=== PATIENT | female | born 1995 | race Caucasian/White ===

== ENCOUNTER 2016-05-03 02:46 | Inpatient (IN) | payer MEDICAID ==
[2016-05-03 03:22] LABS: APPEARANCE,URINE CLOUDY; BILIRUBIN,URINE NEGATIVE (NEGATIVE); GLUCOSE, URINE NEGATIVE (NEGATIVE); KETONES,URINE NEGATIVE (NEGATIVE); LEUKOCYTE ESTERASE,URINE LARGE (NEGATIVE); NITRITE,URINE NEGATIVE (NEGATIVE); PROTEIN,URINE 100 mg/dL (NEGATIVE); URINE SPECIFIC GRAVITY 1.021; UROBILINOGEN,URINE NEGATIVE mg/dL (<2.0)
[2016-05-03 03:36] LABS: URINE BARBITURATES SCREEN NEGATIVE; URINE METHADONE SCREEN NEGATIVE; URINE OPIATES LOW NEGATIVE; URINE PHENCYCLIDINE SCREEN NEGATIVE
[2016-05-03 03:37] LABS: ABSOLUTE BASOPHILS # (AUTO) 0.1 10^3/uL (0.0-0.2); ABSOLUTE EOSINOPHILS # (AUTO) 0.2 10^3/uL (0.0-0.6); ABSOLUTE LYMPHOCYTES (AUTO) 1.4 10^3/uL (0.5-4.7); ABSOLUTE MONOCYTES (AUTO) 0.9 10^3/uL (0.1-1.4); ABSOLUTE NEUT (AUTO) 7.8 10^3/uL (1.7-8.2); BASOPHILS % (AUTO) 0.7 % (0-2); EOSINOPHILS % (AUTO) 2.3 % (0-6); HEMATOCRIT 27.2 % (36.0-47.0); HEMOGLOBIN 9.1 g/dL (12.0-15.5); HGB HCT DIFFERENCE 0.1; LYMPHOCYTES % (AUTO) 13.4 % (13-45); MEAN CORPUSCULAR HEMOGLOBIN 25.1 pg (27.0-33.4); MEAN CORPUSCULAR HGB CONC 33.3 g/dL (32.0-36.0); MEAN CORPUSCULAR VOLUME 75 fl (80-97); RED BLOOD COUNT 3.62 10^6/uL (3.72-5.28); RED CELL DISTRIBUTION WIDTH 16.8 % (11.5-14.0); SEGMENTED NEUTROPHILS % (AUTO) 74.6 % (42-78); WHITE BLOOD COUNT 10.5 10^3/uL (4.0-10.5)
[2016-05-03] MEDS ORDERED: MISOPROSTOL 0.1 MG TABLET ONE ×2 (04:45→04:47)
[2016-05-03] MEDS: RINGERS SOLUTION,LACTATED 1,000 ML IV PRN ×2 (05:03→10:13)
--- NOTE | 2016-05-03 08:00 | L&D Flow Sheet ---
LD Flowsheet Datetime Report Generated by CPN: 05/03/2016 08:00 Datetime: 05/03/2016 07:30 NBP Sys/Zohra/Mean (mmHg): 133 (Norma Norman RN) : 62 (Norma Norman RN) : 89 (Norma Norman RN) Pulse: 90 (Norma Norman RN) Respirations: 16 (Norma Norman RN) Temperature (F): 98.3 (Norma Norman RN) Temperature (C): 36.8 (QS system process) Temperature Route: Oral (Norma Norman, KATELYN) Uterine Activity Monitor Mode: External (Norma Marhefka, RN) Frequency (min): UTD pt OOB to bathroom (Norma Marhefka, RN) Quality: Mild (Nroma Marhefka, RN) Duration (sec): 80 (Norma Marhefka, RN) Resting Tone (Palpate): Relaxed (Norma Marhefka, RN) Assessment A Monitor Mode: External US (Norma Marhefka, RN) FHR Baseline Rate : 140 (Norma Marhefka, RN) FHR Baseline Changes: No Baseline Change (Norma Marhefka, RN) Variability: Moderate 6-25 bpm (Norma Marhefka, RN) Accelerations: None (Norma Marhefka, RN) Decelerations: None (Norma Marhefka, RN) Pain Pain Scale: 3 (Norma Marhefka, RN) Pain Presence: Intermittent (Norma Marhefka, RN) Pain Type: Pressure (Norma Marhefka, RN) Pain Location: Other (Annotations: Pelvic ) (Norma Marhefka, RN) Pain Goal: 0 (Norma Marhefka, RN) Pain Relief Measures: Comfort Measures (Norma Marhefka, RN) Pain Coping: Talking Through Contractions (Norma Marhefka, RN) Maternal Assessment Level of Consciousness: Fully Conscious (Norma Marhefka, RN) DTR's/Clonus: DTRs 2+; No Clonus (Norma Marhefka, RN) Headache: Denies (Norma Marhefka, RN) Breath Sounds, Left: Clear and Equal (Norma Marhefka, RN) Breath Sounds, Right: Clear and Equal (Norma Marhefka, RN) Nausea/Vomiting: Denies (Norma Marhefka, RN) RUQ Epigastric Pain: Denies (Norma Marhefka, RN) LaborFlag: Antepartum (QS system process) Datetime: 05/03/2016 07:27 Comfort Measures: Rocking Chair (Norma Marhefka, RN) Datetime: 05/03/2016 07:24 Communication Communication: Report Given to @ R Marhfeka (Dalila Hawk, RN) Communication Comments: Bedside report to oncoming RN, care relinquished (Dalila Hawk, RN) Datetime: 05/03/2016 07:02 I/O Interventions: Up to BR (Dalila Hawk, RN) Datetime: 05/03/2016 07:00 Uterine Activity Monitor Mode: External (Dalila Hawk, RN) Frequency (min): 3-5 (Dalila Hawk, RN) Quality: Mild/Moderate (Dalila Hawk, RN) Duration (sec): 70-100 (Dalila Hawk, RN) Resting Tone (Palpate): Relaxed (Dalila Hawk, RN) Assessment A Monitor Mode: External US (Dalila Hawk, RN) FHR Baseline Rate : 145 (Dalila Hawk, RN) Variability: Moderate 6-25 bpm (Dalila Hawk, RN) Accelerations: 15X15 (Dalila Hawk, RN) Decelerations: None (Dalila Hawk, RN) Datetime: 05/03/2016 06:30 Uterine Activity Monitor Mode: External (Dalila Hawk, RN) Frequency (min): 3-5 (Dalila Hawk, RN) Quality: Moderate (Dalila Hawk, RN) Duration (sec): 50-100 (Dalila Hawk, RN) Resting Tone (Palpate): Relaxed (Dalila Hawk, RN) Assessment A Monitor Mode: External US (Dalila Hawk, RN) FHR Baseline Rate : 135 (Dalila Hawk, RN) Variability: Moderate 6-25 bpm (Dalila Hawk, RN) Accelerations: 15X15 (Dalila Hawk, RN) Decelerations: None (Dalila Hawk, RN) Datetime: 05/03/2016 06:00 Uterine Activity Monitor Mode: External (Dalila Hawk, RN) Frequency (min): 7-8 (Dalila Hawk, RN) Quality: Moderate (Dalila Hawk, RN) Duration (sec): 50-120 (Dalila Hawk, RN) Resting Tone (Palpate): Relaxed (Dalila Hawk, RN) Assessment A Monitor Mode: External US (Dalila Hawk, RN) FHR Baseline Rate : 135 (Dalila Hawk, RN) Variability: Moderate 6-25 bpm (Dalila Hawk, RN) Accelerations: 15X15 (Dalila Hawk, RN) Decelerations: None (Dalila Hawk, RN) Datetime: 05/03/2016 05:47 I/O Interventions: Up to BR (Dalila Hakw, RN) Datetime: 05/03/2016 05:30 Uterine Activity Monitor Mode: External (Dalila Hawk, RN) Frequency (min): 7-8 (Dalila Hawk, RN) Quality: Moderate (Dalila Hawk, RN) Duration (sec): 100-120 (Dalila Hawk, RN) Resting Tone (Palpate): Relaxed (Dalila Hawk, RN) Assessment A Monitor Mode: External US (Dalila Hawk, RN) FHR Baseline Rate : 135 (Dalila Hawk, RN) Variability: Moderate 6-25 bpm (Dalila Hawk, RN) Accelerations: 15X15 (Dalila Hawk, RN) Decelerations: None (Dalila Hawk, RN) Datetime: 05/03/2016 05:06 I/O Interventions: Up to BR (Dalila Hawk, RN) Datetime: 05/03/2016 05:03 Medications Medication Comments: cytotec 25 mcg PO (Dalila Hawk, RN) Datetime: 05/03/2016 05:02 NBP Sys/Zohra/Mean (mmHg): 127 (QS system process) : 71 (QS system process) : 91 (QS system process) Pulse: 89 (QS system process) LaborFlag: Antepartum (QS system process) Datetime: 05/03/2016 05:00 Uterine Activity Monitor Mode: External (Dalila Hawk, RN) Frequency (min): 6-8 (Dalila Hawk, RN) Quality: Mild/Moderate (Dalila Hawk, RN) Duration (sec): 100 (Dalila Hawk, RN) Resting Tone (Palpate): Relaxed (Dalila Hawk, RN) Assessment A Monitor Mode: External US (Dalila Hawk, RN) FHR Baseline Rate : 135 (Dalila Hawk, RN) Variability: Moderate 6-25 bpm (Dalila Hawk, RN) Accelerations: 15X15 (Dalila Hawk, RN) Decelerations: None (Dalila Hawk, RN) Datetime: 05/03/2016 04:32 NBP Sys/Zohra/Mean (mmHg): 130 (QS system process) : 63 (QS system process) : 90 (QS system process) Pulse: 92 (QS system process) LaborFlag: Antepartum (QS system process) Datetime: 05/03/2016 04:30 Uterine Activity Monitor Mode: External (Dalila Hawk, RN) Frequency (min): 10 (Dalila Hawk, RN) Quality: Mild/Moderate (Dalila Hawk, RN) Duration (sec): 80-180 (Dalila Hawk, RN) Resting Tone (Palpate): Relaxed (Dalila Hawk, RN) Contraction Comments: Unable to accurately assess ctx pattern d/t pt up to BR (Dalila Hawk, RN) Assessment A Monitor Mode: External US (Dalila Hwak, RN) FHR Baseline Rate : 135 (Dalila Hawk, RN) FHR Baseline Rate : 140 (Dalila Hawk, RN) Variability: Moderate 6-25 bpm (Dalila Hawk, RN) Accelerations: 15X15 (Dalila Hawk, RN) Decelerations: None (Dalila Hawk, RN) Datetime: 05/03/2016 04:15 Communication Communication: Provider Orders Received; Report Given to @ Dr Hilton (Dalila Hawk, RN) Communication Comments: Report to Dr Hilton, orders for cytotec 25 mcg PO Q4 (Dalila Hawk, RN) Datetime: 05/03/2016 04:14 Hygiene: Underpad Changed; Gown Changed (Tiana Morris, RN) Patient Care Comments: clean linens provided (Tiana Morris, RN) Datetime: 05/03/2016 04:10 I/O Interventions: Up to BR (Tiana Morris, RN) Datetime: 05/03/2016 04:01 NBP Sys/Zohra/Mean (mmHg): 128 (QS system process) : 69 (QS system process) : 92 (QS system process) Pulse: 82 (QS system process) LaborFlag: Antepartum (QS system process) Datetime: 05/03/2016 04:00 Uterine Activity Monitor Mode: External (Dalila Hawk, RN) Frequency (min): 6-12 (Dalila Hawk, RN) Quality: Mild/Moderate (Dalila Hawk, RN) Duration (sec): 50-220 (Dalila Hawk, RN) Resting Tone (Palpate): Relaxed (Dalila Hawk, RN) Assessment A Monitor Mode: External US (Dalila Hawk, RN) FHR Baseline Rate : 145 (Dalila Hawk, RN) Variability: Moderate 6-25 bpm (Dalila Hawk, RN) Accelerations: 15X15 (Dalila Hawk, RN) Decelerations: None (Dalila Hawk, RN) Datetime: 05/03/2016 03:57 Vaginal Exam Dilatation (cm): 1.0 (Dalila Hawk, RN) Effacement (%): 70 (Dalila Hawk, RN) Station: -3 (Dalila Hawk, RN) Exam by: Jan Arechiga RN (Dalila Hawk, RN) Vaginal Bleeding: None (Dalila Hawk, RN) Cervix, Consistency: Moderate (Dalila Hawk, RN) Cervix, Position: Posterior (Dalila Hawk, RN) Perez's Score Dilatation (cm): 1-2 cm (Dalila Hawk, RN) Effacement: 60-70_ effaced (Dalila Hawk, RN) Station: minus 3 (Dalila Hawk, RN) Consistency: Medium (Dalila Hawk, RN) Position: Posterior (Dalila Hawk, RN) Total Perez's Score: 4 (QS system process) : 0-4 = Unfavorable cervix (QS system process) Datetime: 05/03/2016 03:50 Procedures: Consents Signed (Dalila Hawk, RN) Datetime: 05/03/2016 03:30 NBP Sys/Zohra/Mean (mmHg): 132 (QS system process) : 72 (QS system process) : 97 (QS system process) Pulse: 88 (QS system process) Uterine Activity Monitor Mode: External (Dalila Hawk, RN) Frequency (min): x1 (Dalila Hawk, RN) Quality: Mild/Moderate (Dalila Hawk, RN) Duration (sec): 100 (Dalila Hawk, RN) Resting Tone (Palpate): Relaxed (Dalila Hawk, RN) Assessment A Monitor Mode: External US (Dalila Hawk, RN) FHR Baseline Rate : 145 (Dalila Hawk, RN) Variability: Moderate 6-25 bpm (Dalila Hawk, RN) Accelerations: None (Dalila Hawk, RN) Decelerations: None (Dalila Hawk, RN) Patient Care IV/Blood Work: IV Started; IV Bolus Started; IV Bolus Given ml @ 300 (Dalila Hawk, RN) LaborFlag: Antepartum (QS system process) Datetime: 05/03/2016 03:23 Patient Care IV/Blood Work: Labs Drawn (Dalila Arechiga, KATELYN) Datetime: 05/03/2016 03:15 Quality: Mild/Moderate (Dalila Arechiga RN) Membrane Status: Ruptured (Dalila Arechiga RN) Membranes Ruptured Date/Time: 05/03/2016 02:00 (Dalila Arechiga RN) Membranes Rupture Method: Spontaneous (Dalila Arechiga RN) Amniotic Fluid Color: Clear (Dalila Arechiga RN) Amniotic Fluid Amount: Small (Dalila Arechiga RN) Amniotic Fluid Odor: Normal (Dalila Arechiga RN) Vaginal Bleeding: None (Dalila Arechiga RN) Maternal Assessment Level of Consciousness: Fully Conscious (Dalila Arechiga, RN) DTR's/Clonus: DTRs 2+; No Clonus (Dalila Hawk, RN) Headache: Denies (Dalila Coxl, RN) Breath Sounds, Left: Clear and Equal (Dalila Hawk, RN) Breath Sounds, Right: Clear and Equal (Dalila Hawk, RN) Nausea/Vomiting: Denies (Dalila Hawk, RN) RUQ Epigastric Pain: Denies (Dalilastewart Coxl, RN) Patient Position/Activity: Right Tilt (Dalila Arechiga, RN) Comfort Measures: Family Support (Dalila Arechiga, KATELYN) Teaching Instructional Method: Verbal; Patient Instructed; Family/Support Person Instructed; Verbalized Understanding (Dalila Arechiga RN) Plan of Care: Plan of Care Discussed; Vaginal Delivery; C/S Delivery; Labor; Induction (Dalila Arechiga RN) Unit Routine: [place] to Room; Call [place]; Bed; Photography; Unit Personnel; Monitoring; Bathroom Privileges (Dalila Arechiga RN) Labor/Induction: Labor Stages; Cervical Ripening; Induction (Dalila Arechiga RN) Pain Management: Epidural (Dalila Arechiga RN) Datetime: 05/03/2016 03:14 NBP Sys/Zohra/Mean (mmHg): 141 (QS system process) : 89 (QS system process) : 104 (QS system process) Pulse: 92 (QS system process) Respirations: 15 (Dalila Hawk, RN) Temperature (F): 98.1 (Dalila Hawk, RN) Temperature (C): 36.7 (QS system process) Temperature Route: Oral (Dalila Hawk, RN) LaborFlag: Antepartum (QS system process) Datetime: 05/03/2016 03:12 Vital Signs Stage of : Antepartum (Dalila Arechiga RN)
[2016-05-03] MEDS ORDERED: PROMETHAZINE HCL INJ 25 MG/1 ML VIAL IV ONE (09:12)
[2016-05-03] MEDS ORDERED: NALBUPHINE HCL INJ 10 MG/1 ML AMPULE INJ ONE (09:12)
[2016-05-03] MEDS: MISOPROSTOL 0.1 MG TABLET PO SCH ×3 (09:21→14:45)
--- NOTE | 2016-05-03 10:00 | L&D Flow Sheet ---
LD Flowsheet Datetime Report Generated by CPN: 05/03/2016 10:00 Datetime: 05/03/2016 09:36 I/O Interventions: Up to BR (Norma Marhefka, RN) Datetime: 05/03/2016 09:30 Monitor Mode: External US (Norma Marmarshafka, RN) FHR Baseline Rate : 135 (Norma Mercyfka, RN) FHR Baseline Changes: No Baseline Change (Norma Marmarshafka, RN) Variability: Moderate 6-25 bpm (Norma Marhefka, RN) Accelerations: 15X15 (Norma Madridfka, RN) Decelerations: None (Norma Norman, RN) Datetime: 05/03/2016 09:09 Pain Scale: 4 (Norma Norman RN) Pain Presence: Intermittent (Norma Norman RN) Pain Type: Contraction; Pressure (Norma Norman RN) Pain Location: Abdomen; Other (Norma Norman RN) Pain Goal: 0 (Norma Norman RN) Pain Relief Measures: Comfort Measures (Norma Norman RN) Pain Coping: Talking Through Contractions; Breathing Through Contractions; Requesting Pain Medication or Epidural (Norma Norman RN) Pain Assessment Comments: Jossie Miles CNM notified of patient's vaginal exam and patient's wish to try IV pain medication before an epidural. Order received to give 10 mg IV Nubain and 12.5 mg Phenergan IV. (Norma Norman RN) Comfort Measures: Breathing/Relaxation (Norma Norman RN) LaborFlag: Antepartum (QS system process) Datetime: 05/03/2016 09:03 Dilatation (cm): 3.0 (Norma Marhefka, RN) Effacement (%): 90 (Norma Marhefka, RN) Station: -2 (Norma Marhefka, RN) Exam by: Aruna Norman RN (Norma Marhefka, RN) Vaginal Bleeding: Scant (Norma Marhefka, RN) Cervix, Consistency: Soft (Norma Marhefka, RN) Cervix, Position: Posterior (Norma Marhefka, RN) Datetime: 05/03/2016 09:00 Monitor Mode: External (Norma Marhefka, RN) Frequency (min): 2-4 (Norma Marhefka, RN) Quality: Mild/Moderate (Norma Marhefka, RN) Duration (sec): 60-120 (Norma Marhefka, RN) Resting Tone (Palpate): Relaxed (Norma Marhefka, RN) Monitor Mode: External US (Norma Marhefka, RN) FHR Baseline Rate : 135 (Norma Marhefka, RN) FHR Baseline Changes: No Baseline Change (Norma Marhefka, RN) Variability: Moderate 6-25 bpm (Norma Marhefka, RN) Accelerations: 15X15 (Norma Marhefka, RN) Decelerations: Early (Norma Marhefka, RN) Datetime: 05/03/2016 08:30 Monitor Mode: External; Palpation (Norma Marhefka, RN) Frequency (min): 2-4 (Norma Marhefka, RN) Quality: Mild/Moderate (Norma Marhefka, RN) Duration (sec): 50-140 (Norma Marhefka, RN) Resting Tone (Palpate): Relaxed (Norma Marhefka, RN) Monitor Mode: External US (Norma Marhefka, RN) FHR Baseline Rate : 135 (Norma Marhefka, RN) FHR Baseline Changes: No Baseline Change (Norma Marhefka, RN) Variability: Moderate 6-25 bpm (Norma Marhefka, RN) Accelerations: 15X15 (Norma Marhefka, RN) Decelerations: None (Norma Marhefka, RN) Datetime: 05/03/2016 08:11 I/O Interventions: Up to BR (Norma Marhefka, RN) Datetime: 05/03/2016 08:00 Monitor Mode: External (Norma Norman RN) Frequency (min): 2-4 (Norma Norman RN) Quality: Mild (Norma Norman RN) Duration (sec): 50-150 (Norma Norman RN) Resting Tone (Palpate): Relaxed (Norma Norman RN) Monitor Mode: External US (Norma Norman RN) FHR Baseline Rate : 140 (Norma Norman RN) FHR Baseline Changes: No Baseline Change (Norma Norman RN) Variability: Moderate 6-25 bpm (Norma Norman RN) Accelerations: 15X15 (Norma Norman RN) Decelerations: Early (Norma Norman RN)
[2016-05-03] MEDS ORDERED: PROMETHAZINE HCL INJ 25 MG/1 ML VIAL ONE (10:02)
[2016-05-03] MEDS ORDERED: NALBUPHINE HCL INJ 10 MG/1 ML AMPULE ONE (10:03)
[2016-05-03] MEDS ORDERED: OXYTOCIN/NORMAL SALINE 20 UNIT/1,000 ML RTUINJ ONE (10:41)
[2016-05-03] MEDS ORDERED: OXYTOCIN/NORMAL SALINE 1,000 ML IV PRN ×2 (10:45→19:44)
--- NOTE | 2016-05-03 12:00 | L&D Flow Sheet ---
LD Flowsheet Datetime Report Generated by CPN: 05/03/2016 12:00 Datetime: 05/03/2016 11:59 NBP Sys/Zohra/Mean (mmHg): 139 (QS system process) : 89 (QS system process) : 108 (QS system process) Pulse: 109 (QS system process) LaborFlag: Antepartum (QS system process) Datetime: 05/03/2016 11:51 Pain Coping: Requesting Pain Medication or Epidural (Norma Ester, RN) Datetime: 05/03/2016 11:50 Dilatation (cm): 6.0 (Norma Norman RN) Effacement (%): 90 (Norma Norman RN) Station: -1 (Norma Norman RN) Exam by: Aruna Norman RN (Norma Norman RN) Vaginal Bleeding: Normal Show (Norma Norman RN) Cervix, Consistency: Soft (Norma Norman RN) Cervix, Position: Midposition (Norma Norman RN) Datetime: 05/03/2016 11:42 NBP Sys/Zohra/Mean (mmHg): 134 (QS system process) : 76 (QS system process) : 99 (QS system process) Pulse: 102 (QS system process) LaborFlag: Antepartum (QS system process) Datetime: 05/03/2016 11:30 Monitor Mode: External (Norma Marhefka, RN) Frequency (min): 1-7 (Norma Marhefka, RN) Quality: Mild/Moderate (Norma Marhefka, RN) Duration (sec): 50-160 (Norma Marhefka, RN) Resting Tone (Palpate): Relaxed (Norma Marhefka, RN) Monitor Mode: External US (Norma Marhefka, RN) FHR Baseline Rate : 130 (Norma Marhefka, RN) FHR Baseline Changes: No Baseline Change (Norma Marhefka, RN) Variability: Moderate 6-25 bpm (Norma Marhefka, RN) Accelerations: 15X15 (Norma Marhefka, RN) Decelerations: Early (Norma Marhefka, RN) Pitocin (milliunit): Pitocin Increased to (milliunits) @ (Annotations: 6) (Norma Marhefka, RN) Datetime: 05/03/2016 11:29 NBP Sys/Zohar/Mean (mmHg): 134 (QS system process) : 83 (QS system process) : 103 (QS system process) Pulse: 105 (QS system process) LaborFlag: Antepartum (QS system process) Datetime: 05/03/2016 11:15 Monitor Mode: External (Norma Marhefka, RN) Frequency (min): 5-7 (Norma Marhefka, RN) Quality: Mild/Moderate (Norma Marhefka, RN) Duration (sec): 100-170 (Norma Marhefka, RN) Resting Tone (Palpate): Relaxed (Norma Marhefka, RN) Monitor Mode: External US (Norma Marhefka, RN) FHR Baseline Rate : 130 (Norma Marhefka, RN) FHR Baseline Changes: No Baseline Change (Norma Marhefka, RN) Variability: Moderate 6-25 bpm (Norma Marhefka, RN) Accelerations: 15X15 (Norma Marhefka, RN) Decelerations: Early (Norma Marhefka, RN) Pitocin (milliunit): Pitocin Increased to (milliunits) @ (Annotations: 4) (Norma Marhefka, RN) Datetime: 05/03/2016 11:14 NBP Sys/Zohra/Mean (mmHg): 135 (QS system process) : 69 (QS system process) : 96 (QS system process) Pulse: 96 (QS system process) Respirations: 16 (Norma Marhefka, RN) Temperature (F): 98.9 (Norma Marhefka, RN) Temperature (C): 37.2 (QS system process) Temperature Route: Oral (Norma Marhefka, RN) LaborFlag: Antepartum (QS system process) Datetime: 05/03/2016 11:00 Monitor Mode: External (Norma Norman, RN) Frequency (min): 3-7 (Norma Norman, RN) Quality: Mild/Moderate (Norma Madridfka, RN) Duration (sec): 40-170 (Norma Norman, RN) Resting Tone (Palpate): Relaxed (Norma Norman, RN) Monitor Mode: External US (Norma Norman, RN) FHR Baseline Rate : 130 (Norma Norman, RN) FHR Baseline Changes: No Baseline Change (Norma Mercyfka, RN) Variability: Moderate 6-25 bpm (Norma Marhefka, RN) Accelerations: 10X10 (Norma Marhefka, RN) Decelerations: Early (Normacatherine Norman, RN) Pitocin (milliunit): Pitocin Started (milliunits) @ 2 (Norma Marmarshafka, RN) Datetime: 05/03/2016 10:31 NBP Sys/Zohra/Mean (mmHg): 126 (QS system process) : 70 (QS system process) : 91 (QS system process) Pulse: 93 (QS system process) Respirations: 15 (Norma Marhefka, RN) LaborFlag: Antepartum (QS system process) Datetime: 05/03/2016 10:30 Monitor Mode: External (Norma Marhefka, RN) Frequency (min): 2-6 (Norma Marhefka, RN) Quality: Mild/Moderate (Norma Marhefka, RN) Duration (sec): 60-160 (Norma Marhefka, RN) Resting Tone (Palpate): Relaxed (Norma Marhefka, RN) Monitor Mode: External US (Norma Marhefka, RN) FHR Baseline Rate : 130 (Norma Marhefka, RN) FHR Baseline Changes: No Baseline Change (Norma Marhefka, RN) Variability: Moderate 6-25 bpm (Norma Marhefka, RN) Accelerations: 15X15 (Norma Marhefka, RN) Decelerations: Early (Norma Marhefka, RN) Datetime: 05/03/2016 10:10 NBP Sys/Zohra/Mean (mmHg): 123 (QS system process) : 68 (QS system process) : 88 (QS system process) Pulse: 103 (QS system process) Respirations: 16 (Norma Norman RN) Pain Scale: 5 (Norma Norman RN) Pain Presence: Intermittent (Norma Norman RN) Pain Type: Contraction; Pressure (Norma Norman RN) Pain Location: Abdomen; Back; Perineum (Norma Norman RN) Pain Goal: 0 (Norma Norman RN) Pain Relief Measures: Comfort Measures (Norma Norman RN) Pain Coping: Breathing Through Contractions (Norma Norman RN) Analgesics/Sedatives: Nubain (mg) @ 10; Phenergan (mg) @ 12.5 (Norma Norman RN) LaborFlag: Antepartum (QS system process) Datetime: 05/03/2016 10:07 Patient Position/Activity: Right Lateral; Low Fowlers (Nroma Norman RN) Datetime: 05/03/2016 10:00 Monitor Mode: External; Palpation (Norma Norman RN) Frequency (min): 2-5 (Norma Norman RN) Quality: Mild/Moderate (Norma Norman RN) Duration (sec): 50-140 (Norma Norman RN) Resting Tone (Palpate): Relaxed (Norma Norman RN) Monitor Mode: External US (Norma Norman RN) FHR Baseline Rate : 135 (Norma Norman RN) FHR Baseline Changes: No Baseline Change (Norma Norman RN) Variability: Moderate 6-25 bpm (Norma Norman RN) Accelerations: 15X15 (Norma Norman RN) Decelerations: None (Norma Norman RN)
[2016-05-03] MEDS ORDERED: BUPIVACAINE HCL 0.25 % INJ/PF (2.5 MG/1 ML) 30 ML VIAL ONE (12:01)
[2016-05-03] MEDS ORDERED: FENTANYL/BUPIVACAINE/NS/PF 200 MCG/100 ML RTUINJ EPI ONE (12:01)
[2016-05-03] MEDS ORDERED: EPHEDRINE SULFATE INJ 50 MG/1 ML AMPULE ONE (12:01)
[2016-05-03] MEDS ORDERED: BENZOIN/ALOE VERA/STORAX/TOLU TINCTURE 60 ML TP PRN (12:03)
[2016-05-03] MEDS ORDERED: BUPIVACAINE HCL 0.25 % INJ/PF (2.5 MG/1 ML) 30 ML VIAL INFIL ONE (12:03)
[2016-05-03] MEDS ORDERED: FENTANYL/BUPIVACAINE/NS/PF 100 ML EPI PRN (12:03)
[2016-05-03] MEDS ORDERED: LIDOCAINE 1% INJ-PF (10 MG/ML) 30 ML SDV ONE (12:30)
[2016-05-03] MEDS ORDERED: MISOPROSTOL 0.2 MG TABLET ONE (12:30)
--- NOTE | 2016-05-03 14:00 | L&D Flow Sheet ---
LD Flowsheet Datetime Report Generated by CPN: 05/03/2016 14:00 Datetime: 05/03/2016 13:48 NBP Sys/Zohra/Mean (mmHg): 115 (QS system process) : 60 (QS system process) : 81 (QS system process) Pulse: 113 (QS system process) Respirations: 15 (Norma Norman RN) Temperature (F): 99.5 (Norma Norman RN) Temperature (C): 37.5 (QS system process) Temperature Route: Oral (Norma Norman RN) LaborFlag: Antepartum (QS system process) Datetime: 05/03/2016 13:45 Monitor Mode: External (Norma Marhefka, RN) Frequency (min): 2-4 (Norma Marhefka, RN) Quality: Moderate to Strong (Norma Marhefka, RN) Duration (sec): 60-80 (Norma Marhefka, RN) Resting Tone (Palpate): Relaxed (Norma Marhefka, RN) Monitor Mode: External US (Norma Marhefka, RN) FHR Baseline Rate : 135 (Norma Marhefka, RN) FHR Baseline Changes: No Baseline Change (Norma Marhefka, RN) Variability: Moderate 6-25 bpm (Norma Marhefka, RN) Accelerations: None (Norma Marhefka, RN) Decelerations: Early (Norma Marhefka, RN) Pitocin (milliunit): Pitocin Increased to (milliunits) @ (Annotations: 8) (Norma Marhefka, RN) Datetime: 05/03/2016 13:34 NBP Sys/Zohra/Mean (mmHg): 113 (QS system process) : 66 (QS system process) : 84 (QS system process) Pulse: 120 (QS system process) LaborFlag: Antepartum (QS system process) Datetime: 05/03/2016 13:30 Monitor Mode: External (Norma Marhefka, RN) Frequency (min): 2-4 (Norma Marhefka, RN) Quality: Moderate to Strong (Norma Marhefka, RN) Duration (sec): 60-80 (Norma Marhefka, RN) Resting Tone (Palpate): Relaxed (Norma Marhefka, RN) Monitor Mode: External US (Norma Marhefka, RN) FHR Baseline Rate : 135 (Norma Marhefka, RN) FHR Baseline Changes: No Baseline Change (Norma Marhefka, RN) Variability: Moderate 6-25 bpm (Norma Marhefka, RN) Accelerations: None (Norma Marhefka, RN) Decelerations: Early (Norma Marhefka, RN) Pitocin (milliunit): Pitocin Remains (milliunits) @ (Annotations: 6) (Norma Marhefka, RN) Datetime: 05/03/2016 13:17 NBP Sys/Zohra/Mean (mmHg): 128 (QS system process) : 56 (QS system process) : 81 (QS system process) Pulse: 121 (QS system process) LaborFlag: Antepartum (QS system process) Datetime: 05/03/2016 13:15 Monitor Mode: External (Norma Marhefka, RN) Frequency (min): 2-3 (Norma Marhefka, RN) Quality: Moderate to Strong (Norma Marhefka, RN) Duration (sec): 60-120 (Norma Marhefka, RN) Resting Tone (Palpate): Relaxed (Norma Marhefka, RN) Monitor Mode: External US (Norma Marhefka, RN) FHR Baseline Rate : 135 (Norma Marhefka, RN) FHR Baseline Changes: No Baseline Change (Norma Marhefka, RN) Variability: Moderate 6-25 bpm (Norma Marhefka, RN) Accelerations: None (Norma Marhefka, RN) Decelerations: Early (Norma Marhefka, RN) Pitocin (milliunit): Pitocin Remains (milliunits) @ (Annotations: 6) (Norma Marhefka, RN) Datetime: 05/03/2016 13:13 NBP Sys/Zohra/Mean (mmHg): 138 (QS system process) : 78 (QS system process) : 99 (QS system process) Pulse: 116 (QS system process) LaborFlag: Antepartum (QS system process) Datetime: 05/03/2016 13:12 NBP Sys/Zohra/Mean (mmHg): 141 (QS system process) : 78 (QS system process) : 103 (QS system process) Pulse: 116 (QS system process) LaborFlag: Antepartum (QS system process) Datetime: 05/03/2016 13:11 NBP Sys/Zohra/Mean (mmHg): 139 (QS system process) : 63 (QS system process) : 91 (QS system process) Pulse: 122 (QS system process) Dilatation (cm): 7.0 (Norma Norman RN) Effacement (%): 90 (Norma Norman RN) Station: 0 (Norma Norman RN) Exam by: Aruna Norman RN (Norma Norman RN) Vaginal Bleeding: Normal Show (Norma Norman RN) Cervix, Consistency: Soft (Norma Norman RN) Cervix, Position: Midposition (Norma Norman RN) I/O Interventions: Rhodes Cath Inserted (Norma Norman RN) LaborFlag: Antepartum (QS system process) Datetime: 05/03/2016 13:10 NBP Sys/Zohra/Mean (mmHg): 154 (QS system process) : 67 (QS system process) : 97 (QS system process) Pulse: 113 (QS system process) LaborFlag: Antepartum (QS system process) Datetime: 05/03/2016 13:09 NBP Sys/Zohra/Mean (mmHg): 143 (QS system process) : 72 (QS system process) : 96 (QS system process) Pulse: 118 (QS system process) LaborFlag: Antepartum (QS system process) Datetime: 05/03/2016 13:08 NBP Sys/Zohra/Mean (mmHg): 137 (QS system process) : 71 (QS system process) : 97 (QS system process) Pulse: 109 (QS system process) LaborFlag: Antepartum (QS system process) Datetime: 05/03/2016 13:07 NBP Sys/Zohra/Mean (mmHg): 145 (QS system process) : 80 (QS system process) : 106 (QS system process) Pulse: 114 (QS system process) LaborFlag: Antepartum (QS system process) Datetime: 05/03/2016 13:06 NBP Sys/Zohra/Mean (mmHg): 130 (QS system process) : 65 (QS system process) : 87 (QS system process) Pulse: 115 (QS system process) LaborFlag: Antepartum (QS system process) Datetime: 05/03/2016 13:05 Procedure Verify: Correct Patient Identity; Correct Side and Site are Marked; Accurate Procedure Consent Form; Agreement on Procedure to be Done; Correct Patient Position (Norma Dougka, RN) Datetime: 05/03/2016 13:04 NBP Sys/Zohra/Mean (mmHg): 138 (QS system process) : 72 (QS system process) : 98 (QS system process) Pulse: 120 (QS system process) LaborFlag: Antepartum (QS system process) Datetime: 05/03/2016 13:03 NBP Sys/Zohra/Mean (mmHg): 138 (QS system process) : 64 (QS system process) : 92 (QS system process) Pulse: 121 (QS system process) LaborFlag: Antepartum (QS system process) Datetime: 05/03/2016 13:02 NBP Sys/Zohra/Mean (mmHg): 131 (QS system process) : 60 (QS system process) : 86 (QS system process) Pulse: 120 (QS system process) LaborFlag: Antepartum (QS system process) Datetime: 05/03/2016 13:01 NBP Sys/Zohra/Mean (mmHg): 135 (QS system process) : 65 (QS system process) : 94 (QS system process) Pulse: 123 (QS system process) LaborFlag: Antepartum (QS system process) Datetime: 05/03/2016 13:00 NBP Sys/Zohra/Mean (mmHg): 129 (QS system process) : 64 (QS system process) : 90 (QS system process) Pulse: 117 (QS system process) Monitor Mode: External (Norma Norman RN) Frequency (min): 2-3 (Norma Norman RN) Quality: Moderate to Strong (Norma Norman RN) Duration (sec): 70-90 (Norma Norman RN) Resting Tone (Palpate): Relaxed (Norma Norman RN) Monitor Mode: External US (Norma Norman RN) FHR Baseline Rate : 125 (Norma Norman RN) FHR Baseline Changes: No Baseline Change (Norma Norman RN) Variability: Moderate 6-25 bpm (Norma Norman RN) Accelerations: None (Norma Norman RN) Decelerations: None (Norma Norman RN) Comments: RN @ bedside continuously monitoring FHTs while pt sitting up for epidural. (Norma Norman RN) Pitocin (milliunit): Pitocin Remains (milliunits) @ (Annotations: 6) (Norma Norman RN) Procedure Verify: Correct Patient Identity; Correct Side and Site are Marked; Accurate Procedure Consent Form; Agreement on Procedure to be Done; Correct Patient Position; Relevant Images and Results are Properly Labeled and Displayed; Addressed Need to Administer Antibiotics or Fluids for Irrigation; Safety Precautions Based on Patient History or Medication Use (Norma Norman RN) Epidural Positioning: Sitting (Norma Norman RN) LaborFlag: Antepartum (QS system process) Datetime: 05/03/2016 12:59 NBP Sys/Zohra/Mean (mmHg): 132 (QS system process) : 76 (QS system process) : 98 (QS system process) Pulse: 115 (QS system process) LaborFlag: Antepartum (QS system process) Datetime: 05/03/2016 12:58 NBP Sys/Zohra/Mean (mmHg): 134 (QS system process) : 74 (QS system process) : 98 (QS system process) Pulse: 116 (QS system process) Pulse: 108 (QS system process) SpO2 (%): 98 (QS system process) LaborFlag: Antepartum (QS system process) Datetime: 05/03/2016 12:57 NBP Sys/Zohra/Mean (mmHg): 133 (QS system process) : 76 (QS system process) : 98 (QS system process) Pulse: 112 (QS system process) LaborFlag: Antepartum (QS system process) Datetime: 05/03/2016 12:56 NBP Sys/Zohra/Mean (mmHg): 141 (QS system process) : 81 (QS system process) : 103 (QS system process) Pulse: 109 (QS system process) LaborFlag: Antepartum (QS system process) Datetime: 05/03/2016 12:55 Epidural Procedure: Loading Dose (Norma Marhefka, RN) Datetime: 05/03/2016 12:53 Pulse: 98 (QS system process) SpO2 (%): 97 (QS system process) LaborFlag: Antepartum (QS system process) Datetime: 05/03/2016 12:52 Epidural Procedure: Cath Placed (Norma Norman RN) Datetime: 05/03/2016 12:49 Procedure Verify: Correct Patient Identity; Correct Side and Site are Marked; Accurate Procedure Consent Form; Agreement on Procedure to be Done; Correct Patient Position; Relevant Images and Results are Properly Labeled and Displayed; Addressed Need to Administer Antibiotics or Fluids for Irrigation; Safety Precautions Based on Patient History or Medication Use (Norma Norman RN) Epidural Positioning: Sitting (Norma Norman RN) Datetime: 05/03/2016 12:48 Pulse: 127 (QS system process) SpO2 (%): 97 (QS system process) LaborFlag: Antepartum (QS system process) Datetime: 05/03/2016 12:45 Monitor Mode: External (Norma Norman, RN) Frequency (min): 3 (Norma Norman, RN) Quality: Moderate to Strong (Norma Dougka, RN) Duration (sec): 60-140 (Norma Mercyfka, RN) Resting Tone (Palpate): Relaxed (Norma Madridfka, RN) Monitor Mode: External US (Norma Norman, RN) FHR Baseline Rate : 130 (Norma Dougka, RN) FHR Baseline Changes: No Baseline Change (Norma Mercyfka, RN) Variability: Moderate 6-25 bpm (Norma Marhefka, RN) Accelerations: 15X15 (Norma Marhefka, RN) Decelerations: None (Norma Mercyfka, RN) Pitocin (milliunit): Pitocin Remains (milliunits) @ (Annotations: 6) (Norma Marhefka, RN) Datetime: 05/03/2016 12:44 NBP Sys/Zohra/Mean (mmHg): 148 (QS system process) : 78 (QS system process) : 105 (QS system process) Pulse: 111 (QS system process) LaborFlag: Antepartum (QS system process) Datetime: 05/03/2016 12:30 Monitor Mode: External; Palpation (Norma Norman RN) Frequency (min): 2-4 (Norma Norman RN) Quality: Moderate to Strong (Norma Norman RN) Duration (sec): 60-120 (Norma Norman RN) Resting Tone (Palpate): Relaxed (Norma Norman RN) Monitor Mode: External US (Norma Norman RN) FHR Baseline Rate : 130 (Norma Norman RN) FHR Baseline Changes: No Baseline Change (Norma Norman RN) Variability: Moderate 6-25 bpm (Norma Norman RN) Accelerations: None (Norma Norman RN) Decelerations: Early (Norma Norman RN) Pitocin (milliunit): Pitocin Remains (milliunits) @ (Annotations: 6) (Norma Marhefka, RN) Datetime: 05/03/2016 12:29 NBP Sys/Zohra/Mean (mmHg): 135 (QS system process) : 86 (QS system process) : 107 (QS system process) LaborFlag: Antepartum (QS system process) Datetime: 05/03/2016 12:15 Monitor Mode: External (Norma Mercyfka, RN) Frequency (min): 2-4 (Norma Marhefka, RN) Quality: Moderate to Strong (Norma Marhefka, RN) Duration (sec): 60-130 (Norma Marhefka, RN) Resting Tone (Palpate): Relaxed (Norma Mercyfka, RN) Monitor Mode: External US (Norma Mercyfka, RN) FHR Baseline Rate : 130 (Norma Marhefka, RN) FHR Baseline Changes: No Baseline Change (Norma Marhefka, RN) Variability: Moderate 6-25 bpm (Norma Marhefka, RN) Accelerations: 15X15 (Norma Marhefka, RN) Decelerations: Early (Norma Norman RN) Pitocin (milliunit): Pitocin Remains (milliunits) @ (Annotations: 6) (Norma Norman RN) Datetime: 05/03/2016 12:13 NBP Sys/Zohra/Mean (mmHg): 148 (QS system process) : 84 (QS system process) : 107 (QS system process) Pulse: 111 (QS system process) LaborFlag: Antepartum (QS system process) Datetime: 05/03/2016 12:11 Dilatation (cm): 7.0 (Norma Norman RN) Effacement (%): 90 (Norma Norman RN) Station: 0 (Norma Norman RN) Exam by: Aruna Norman RN (Norma Norman RN) Vaginal Exam Comments: Pt involuntarily pushing with ctxs. Pt encouraged to breath through her ctxs and try not to push. Pt verbalized understanding. (Norma Norman RN) Datetime: 05/03/2016 12:00 Monitor Mode: External (Norma Norman RN) Frequency (min): 3 (Norma Norman RN) Quality: Moderate to Strong (Norma Norman RN) Duration (sec): 60-110 (Norma Norman RN) Resting Tone (Palpate): Relaxed (Norma Norman RN) Monitor Mode: External US (Norma Norman RN) FHR Baseline Rate : 125 (Norma Norman RN) FHR Baseline Changes: No Baseline Change (Norma Norman RN) Variability: Moderate 6-25 bpm (Norma Norman RN) Accelerations: 15X15 (Norma Norman RN) Decelerations: Early (Norma Norman RN) Pitocin (milliunit): Pitocin Remains (milliunits) @ (Annotations: 6) (Norma Norman RN)
[2016-05-03] MEDS ORDERED: DIPHENHYDRAMINE HCL 25 MG CAPSULE ONE (14:26)
--- NOTE | 2016-05-03 16:00 | L&D Flow Sheet ---
LD Flowsheet Datetime Report Generated by CPN: 05/03/2016 16:00 Datetime: 05/03/2016 15:58 Pulse: 113 (QS system process) SpO2 (%): 97 (QS system process) LaborFlag: Antepartum (QS system process) Datetime: 05/03/2016 15:53 Pulse: 117 (QS system process) SpO2 (%): 97 (QS system process) LaborFlag: Antepartum (QS system process) Datetime: 05/03/2016 15:48 NBP Sys/Zohra/Mean (mmHg): 137 (QS system process) : 82 (QS system process) : 103 (QS system process) Pulse: 124 (QS system process) Pulse: 115 (QS system process) SpO2 (%): 98 (QS system process) LaborFlag: Antepartum (QS system process) Datetime: 05/03/2016 15:43 Pulse: 110 (QS system process) SpO2 (%): 98 (QS system process) LaborFlag: Antepartum (QS system process) Datetime: 05/03/2016 15:38 Pulse: 123 (QS system process) SpO2 (%): 97 (QS system process) LaborFlag: Antepartum (QS system process) Datetime: 05/03/2016 15:36 Patient Position/Activity: Right Lateral; Semi-Fowlers (Norma Marhefka, RN) Datetime: 05/03/2016 15:34 NBP Sys/Zohra/Mean (mmHg): 136 (QS system process) : 66 (QS system process) : 93 (QS system process) Pulse: 121 (QS system process) LaborFlag: Antepartum (QS system process) Datetime: 05/03/2016 15:33 Pulse: 130 (QS system process) SpO2 (%): 98 (QS system process) LaborFlag: Antepartum (QS system process) Datetime: 05/03/2016 15:32 Dilatation (cm): 9.0 (Norma Ester, RN) Effacement (%): 100 (Norma Ester, RN) Station: 0 (Norma Norman, RN) Exam by: Jossie Miles CNM (Norma Ester, RN) Vaginal Bleeding: Normal Show (Norma Ester, RN) Cervix, Consistency: Soft (Norma Mercyfka, RN) Cervix, Position: Midposition (Norma Marhefka, RN) Datetime: 05/03/2016 15:30 Monitor Mode: External (Norma Mercyfka, RN) Frequency (min): 2-4 (Norma Mercyfka, RN) Quality: Moderate to Strong (Norma Marhefka, RN) Duration (sec): 70-100 (Norma Mercyfka, RN) Resting Tone (Palpate): Relaxed (Norma Norman, RN) Monitor Mode: External US (Norma Norman, RN) FHR Baseline Rate : 135 (Normacatherine Madridfka, RN) FHR Baseline Changes: No Baseline Change (Norma Marmarshafka, RN) Variability: Moderate 6-25 bpm (Norma Mercyfka, RN) Accelerations: None (Norma Mercyfka, RN) Decelerations: Early (Normacatherine Norman, RN) Pitocin (milliunit): Pitocin Remains (milliunits) @ (Annotations: 12) (Normacatherine Norman, RN) Datetime: 05/03/2016 15:28 Pulse: 123 (QS system process) SpO2 (%): 98 (QS system process) LaborFlag: Antepartum (QS system process) Datetime: 05/03/2016 15:23 Pulse: 119 (QS system process) Pulse: 110 (QS system process) SpO2 (%): 95 (QS system process) SpO2 (%): 91 (QS system process) LaborFlag: Antepartum (QS system process) Datetime: 05/03/2016 15:18 Patient Position/Activity: Left Lateral; Peanut Ball (Norma Marhefka, RN) Datetime: 05/03/2016 15:17 Pulse: 128 (QS system process) SpO2 (%): 98 (QS system process) LaborFlag: Antepartum (QS system process) Datetime: 05/03/2016 15:15 Monitor Mode: External (Norma Marhefka, RN) Frequency (min): 2-5 (Norma Marhefka, RN) Quality: Moderate to Strong (Norma Marhefka, RN) Duration (sec): 90-110 (Norma Marhefka, RN) Resting Tone (Palpate): Relaxed (Norma Marhefka, RN) Monitor Mode: External US (Norma Marhefka, RN) FHR Baseline Rate : 140 (Norma Marhefka, RN) FHR Baseline Changes: No Baseline Change (Norma Marhefka, RN) Variability: Moderate 6-25 bpm (Norma Marhefka, RN) Accelerations: None (Norma Marhefka, RN) Decelerations: Variable (Norma Marhefka, RN) Pitocin (milliunit): Pitocin Remains (milliunits) @ (Annotations: 12) (Norma Marhefka, RN) Datetime: 05/03/2016 15:12 Pulse: 116 (QS system process) SpO2 (%): 96 (QS system process) Temperature (F): 100.4 (Norma Marhefka, RN) Temperature (C): 38.0 (QS system process) Temperature Route: Axillary (Norma Marhefka, RN) LaborFlag: Antepartum (QS system process) Datetime: 05/03/2016 15:07 Pulse: 122 (QS system process) SpO2 (%): 97 (QS system process) LaborFlag: Antepartum (QS system process) Datetime: 05/03/2016 15:03 NBP Sys/Zohra/Mean (mmHg): 127 (QS system process) : 62 (QS system process) : 86 (QS system process) Pulse: 127 (QS system process) LaborFlag: Antepartum (QS system process) Datetime: 05/03/2016 15:00 Monitor Mode: External (Norma Breannahepamka, RN) Frequency (min): 2-4 (Norma Norman, RN) Quality: Moderate to Strong (Norma Ester, RN) Duration (sec): 90-140 (Norma Norman RN) Resting Tone (Palpate): Relaxed (Norma Marhefka, RN) Monitor Mode: External US (Norma Mercyfka, RN) FHR Baseline Rate : 135 (Norma Marhefka, RN) FHR Baseline Changes: No Baseline Change (Norma Marhefka, RN) Variability: Moderate 6-25 bpm (Norma Marhefka, RN) Accelerations: None (Norma Marhefka, RN) Decelerations: Early (Norma Marhefka, RN) Pitocin (milliunit): Pitocin Increased to (milliunits) @ (Annotations: 12) (Norma Marhefka, RN) Datetime: 05/03/2016 14:48 NBP Sys/Zohra/Mean (mmHg): 130 (QS system process) : 60 (QS system process) : 87 (QS system process) Pulse: 116 (QS system process) LaborFlag: Antepartum (QS system process) Datetime: 05/03/2016 14:45 Monitor Mode: External (Norma Marhefka, RN) Frequency (min): 2-4 (Norma Marhefka, RN) Quality: Moderate to Strong (Norma Marhefka, RN) Duration (sec): 60-110 (Norma Marhefka, RN) Resting Tone (Palpate): Relaxed (Norma Marmarshafka, RN) Monitor Mode: External US (Norma Madridfkiara, RN) FHR Baseline Rate : 140 (Norma Marhefka, RN) FHR Baseline Changes: No Baseline Change (Norma Marhefka, RN) Variability: Moderate 6-25 bpm (Norma Marhefka, RN) Accelerations: None (Norma Marhefka, RN) Decelerations: Early (Norma Marhefka, RN) Pitocin (milliunit): Pitocin Remains (milliunits) @ (Annotations: 10) (Norma Marhefka, RN) Datetime: 05/03/2016 14:33 NBP Sys/Zohra/Mean (mmHg): 139 (QS system process) : 65 (QS system process) : 94 (QS system process) Pulse: 125 (QS system process) Respirations: 16 (Norma Marhefka, RN) LaborFlag: Antepartum (QS system process) Datetime: 05/03/2016 14:30 Monitor Mode: External (Norma Norman RN) Frequency (min): 2-4 (Norma Norman RN) Quality: Moderate to Strong (Norma Norman RN) Duration (sec): 80-100 (Norma Norman RN) Resting Tone (Palpate): Relaxed (Norma Norman RN) Monitor Mode: External US (Norma Norman RN) FHR Baseline Rate : 125 (Norma Norman RN) FHR Baseline Changes: No Baseline Change (Norma Norman RN) Variability: Moderate 6-25 bpm (Norma Norman RN) Accelerations: 15X15 (Norma Norman, RN) Decelerations: None (Norma Norman, RN) Pitocin (milliunit): Pitocin Remains (milliunits) @ (Annotations: 10) (Norma Norman RN) Medication Comments: 25 mg PO Benadryl given (Norma Norman RN) Datetime: 05/03/2016 14:19 NBP Sys/Zohra/Mean (mmHg): 145 (QS system process) : 87 (QS system process) : 109 (QS system process) Pulse: 153 (QS system process) Temperature (F): 100.0 (Norma Norman RN) Temperature (C): 37.8 (QS system process) Temperature Route: Axillary (Norma Norman RN) LaborFlag: Antepartum (QS system process) Datetime: 05/03/2016 14:15 Monitor Mode: External (Norma Camachoka, RN) Frequency (min): 2-4 (Norma Norman, RN) Quality: Moderate to Strong (Norma Marhefka, RN) Duration (sec): 50-110 (Norma Marhefka, RN) Resting Tone (Palpate): Relaxed (Norma Norman, RN) Monitor Mode: External US (Norma [place], RN) FHR Baseline Rate : 135 (Norma Mercyfka, RN) FHR Baseline Changes: No Baseline Change (Norma Marhefka, RN) Variability: Moderate 6-25 bpm (Norma Marhefka, RN) Accelerations: 15X15 (Norma Marhefka, RN) Decelerations: Early; Variable (Norma Marhefka, RN) Pitocin (milliunit): Pitocin Increased to (milliunits) @ 10 (Norma Norman, RN) Patient Position/Activity: Hands-Knees (Norma Marhefka, RN) Datetime: 05/03/2016 14:12 Dilatation (cm): 8.0 (Norma Norman RN) Effacement (%): 90 (Norma Norman RN) Station: 0 (Norma Norman RN) Exam by: Aruna Norman RN (Norma Norman RN) Vaginal Exam Comments: Cervical swelling noted. Pt involuntarily pushing with ctxs, pt encouraged to breath through ctxs. (Norma Norman RN) Datetime: 05/03/2016 14:04 NBP Sys/Zohra/Mean (mmHg): 123 (QS system process) : 61 (QS system process) : 84 (QS system process) Pulse: 110 (QS system process) LaborFlag: Antepartum (QS system process) Datetime: 05/03/2016 14:00 Monitor Mode: External; Palpation (Norma Norman RN) Frequency (min): 2-4 (Norma Norman RN) Quality: Moderate to Strong (Norma Norman RN) Duration (sec): 70-100 (Norma Norman RN) Resting Tone (Palpate): Relaxed (Norma Norman RN) Monitor Mode: External US (Norma Norman RN) FHR Baseline Rate : 135 (Norma Norman RN) FHR Baseline Changes: No Baseline Change (Norma Norman RN) Variability: Moderate 6-25 bpm (Norma Norman RN) Accelerations: None (Norma Norman RN) Decelerations: Early (Norma Norman RN) Pitocin (milliunit): Pitocin Remains (milliunits) @ (Annotations: 8) (Norma Norman RN)
--- NOTE | 2016-05-03 16:09 | L&D Progress Notes ---
PROGRESS NOTES Datetime Report Generated by CPN: 05/03/2016 16:09 PROGRESS NOTE Comment: SVE done at 1530. Cervix at 9 cm/c/0. [address]. Will continue present management. UC pattern somewhat dysfunctional-pitocin at 12 miu-will increase. Baby with reactive tracing. VAGINAL EXAM Dilatation: 1 Effacement: 70 Station: -3 MEMBRANES Membranes: Ruptured Amniotic Fluid Color: Clear FETUS A : 40.6 SIGNATURE SIGNATURE: [id number] Assignment: Shanta Bernard MD Signature: with User ID: [email or web address] : with User ID: [email or web address] : Rodrigo personally evaluated and examined the patient in conjunction with the P and agree with the assessment, treatment plan and disposition.
[2016-05-03] MEDS ORDERED: AMPICILLIN SOD/SULBACTAM 3 GM VIAL ONE (16:42)
--- NOTE | 2016-05-03 18:00 | L&D Flow Sheet ---
LD Flowsheet Datetime Report Generated by CPN: 05/03/2016 18:00 Datetime: 05/03/2016 17:48 NBP Sys/Zohra/Mean (mmHg): 121 (QS system process) : 56 (QS system process) : 81 (QS system process) Pulse: 91 (QS system process) Datetime: 05/03/2016 17:45 Stage of : Recovery (Norma Norman RN) Pain Scale: 1 (Norma Norman RN) Pain Presence: Constant (Norma Norman RN) Pain Type: Burning; Sharp (Norma Norman RN) Pain Location: Perineum (Norma Norman RN) Pain Goal: 0 (Norma Norman RN) Pain Relief Measures: Comfort Measures (Norma Norman RN) Datetime: 05/03/2016 17:33 NBP Sys/Zohra/Mean (mmHg): 133 (QS system process) : 57 (QS system process) : 85 (QS system process) Pulse: 122 (QS system process) Datetime: 05/03/2016 17:30 Stage of : Recovery (Normacatherine Madridscott, KATELYN) Datetime: 05/03/2016 17:18 NBP Sys/Zohra/Mean (mmHg): 123 (QS system process) : 55 (QS system process) : 79 (QS system process) Pulse: 112 (QS system process) LaborFlag: Antepartum (QS system process) Datetime: 05/03/2016 17:07 Comments: viable baby girl (Norma Marhefka, RN) Datetime: 05/03/2016 17:00 Monitor Mode: External (Norma Marhefka, RN) Frequency (min): 2-3 (Norma Marhefka, RN) Quality: Moderate to Strong (Norma Marhefka, RN) Duration (sec): 60-80 (Norma Marhefka, RN) Resting Tone (Palpate): Relaxed (Norma Marhefka, RN) Datetime: 05/03/2016 16:56 Pushing Progress: Descent with Pushing; Molding Noted; Caput Noted; with Pushing; Pushing Effectively with Contractions (Norma Norman RN) Communication: RN at Bedside; Provider at Bedside (Norma Norman RN) Communication Comments: RN and provider @ bedside continuously monitoring FHTs while pt pushing. (Norma Norman RN) Datetime: 05/03/2016 16:49 NBP Sys/Zohra/Mean (mmHg): 120 (QS system process) : 84 (QS system process) : 98 (QS system process) Pulse: 130 (QS system process) LaborFlag: Antepartum (QS system process) Datetime: 05/03/2016 16:46 Medication Comments: Unasyn 3 gm IVPB (Norma Marhefka, RN) Datetime: 05/03/2016 16:45 Monitor Mode: External (Norma Marhefka, RN) Frequency (min): 2-4 (Norma Marhefka, RN) Quality: Moderate to Strong (Norma Marhefka, RN) Duration (sec): 60-100 (Norma Marhefka, RN) Resting Tone (Palpate): Relaxed (Norma Marhefka, RN) Datetime: 05/03/2016 16:40 Pushing: Coached on Pushing (Norma Marhefka, RN) Pushing Position: Pushing with Contractions (Norma Marhefka, RN) Pushing Progress: Descent with Pushing (Norma Marhefka, RN) Datetime: 05/03/2016 16:37 Dilatation (cm): 10.0 (Norma Norman RN) Effacement (%): 100 (Norma Norman RN) Station: 1 (Norma Norman RN) Exam by: Jossie Miles CNM (Norma Norman RN) Cervix, Consistency: Soft (Norma Norman RN) Cervix, Position: Midposition (Norma Norman RN) Vaginal Exam Comments: caput noted (Norma Norman RN) Datetime: 05/03/2016 16:33 NBP Sys/Zohra/Mean (mmHg): 125 (QS system process) : 60 (QS system process) : 87 (QS system process) Pulse: 127 (QS system process) Pulse: 123 (QS system process) SpO2 (%): 97 (QS system process) LaborFlag: Antepartum (QS system process) Datetime: 05/03/2016 16:30 Monitor Mode: External (Norma Marhefka, RN) Frequency (min): 2-4 (Norma Marhefka, RN) Quality: Moderate to Strong (Norma Marhefka, RN) Duration (sec): 110-130 (Norma Marhefka, RN) Resting Tone (Palpate): Relaxed (Norma Marhefka, RN) Datetime: 05/03/2016 16:28 Pulse: 115 (QS system process) SpO2 (%): 98 (QS system process) Temperature (F): 100.8 (Norma Marhefka, RN) Temperature (C): 38.2 (QS system process) Temperature Route: Axillary (Norma Marhefka, RN) LaborFlag: Antepartum (QS system process) Datetime: 05/03/2016 16:23 Pulse: 113 (QS system process) SpO2 (%): 97 (QS system process) LaborFlag: Antepartum (QS system process) Datetime: 05/03/2016 16:19 NBP Sys/Zohra/Mean (mmHg): 130 (QS system process) : 73 (QS system process) : 94 (QS system process) Pulse: 107 (QS system process) LaborFlag: Antepartum (QS system process) Datetime: 05/03/2016 16:18 Pulse: 113 (QS system process) SpO2 (%): 96 (QS system process) LaborFlag: Antepartum (QS system process) Datetime: 05/03/2016 16:15 Monitor Mode: External (Norma Marhefka, RN) Frequency (min): 2-4 (Norma Marhefka, RN) Quality: Moderate to Strong (Norma Marhefka, RN) Duration (sec): 70-140 (Norma Marhefka, RN) Resting Tone (Palpate): Relaxed (Norma Marhefka, RN) Monitor Mode: External US (Norma Marhefka, RN) FHR Baseline Rate : 130 (Norma Marhefka, RN) FHR Baseline Changes: No Baseline Change (Norma Marhefka, RN) Variability: Minimal - Undetectable to <=5 bpm (Norma Marhefka, RN) Accelerations: None (Norma Marhefka, RN) Decelerations: Early (Norma Marhefka, RN) Pitocin (milliunit): Pitocin Increased to (milliunits) @ (Annotations: 14) (Norma Marhefka, RN) Datetime: 05/03/2016 16:13 Pulse: 190 (QS system process) SpO2 (%): 97 (QS system process) LaborFlag: Antepartum (QS system process) Datetime: 05/03/2016 16:08 Pulse: 123 (QS system process) SpO2 (%): 98 (QS system process) LaborFlag: Antepartum (QS system process) Datetime: 05/03/2016 16:04 NBP Sys/Zohra/Mean (mmHg): 138 (QS system process) : 76 (QS system process) : 98 (QS system process) Pulse: 122 (QS system process) LaborFlag: Antepartum (QS system process) Datetime: 05/03/2016 16:03 Pulse: 120 (QS system process) SpO2 (%): 98 (QS system process) LaborFlag: Antepartum (QS system process) Datetime: 05/03/2016 16:00 Monitor Mode: External (Norma Norman RN) Frequency (min): 2-4 (Norma Norman RN) Quality: Moderate to Strong (Norma Norman RN) Duration (sec): 60-80 (Norma Norman RN) Resting Tone (Palpate): Relaxed (Norma Norman RN) Monitor Mode: External US (Norma Norman RN) FHR Baseline Rate : 130 (Norma Norman RN) FHR Baseline Changes: No Baseline Change (Norma Norman RN) Variability: Moderate 6-25 bpm (Norma Norman RN) Accelerations: 15X15 (Norma Norman RN) Decelerations: Early (Norma Norman RN) Pitocin (milliunit): Pitocin Remains (milliunits) @ (Annotations: 12) (Norma Norman RN)
[2016-05-03] MEDS ORDERED: LEVOTHYROXINE SODIUM 0.05 MG TABLET PO ONE (19:00)
--- NOTE | 2016-05-03 19:28 | Delivery Summary ---
Del Sum A-C Datetime Report Generated by CPN: 05/03/2016 19:28 ADMISSION DATA Chief Complaint: Suspected Ruptured Membranes Indication for Induction: Not Applicable Admission Impression: Postterm, Intrauterine ; No Active Labor; Ruptured Membranes DELIVERY PERSONNEL Delivery Doctor:: Yara Miles CNM Nurse Registered Pharmacy Technician Certified:: Yara Miles CNM Anesthesiologist:: Prieto Eisenberg MD Labor and Delivery Nurse:: Norma Norman RNhuman factors advisor lead Nurse:: Tonie Elkins RN Slide Fastener Repairer/NILE: Shanta Martinez, CNC LATHE MACHINE OPERATOR Slide Fastener Repairer/MUTUEL MACHINE OPERATOR: Marisela SabillonNORAH Carvajal MATERNAL INFORMATION Delivery Anesthesia: Epidural Medications After Delivery: Pitocin Bolus-Please Comment Meds After Delivery Comment: 20 Units Pitocin/1000ml NS bolus Estimated Blood Loss (ml): 250 Maternal Complications: Maternal Fever Provider Comments: of live female in vertex OA to JONNATHAN at 1707 under epidural anesthesia. Spontaneous respirations and cry. 3-vessel cord. Apgars 9-9. Maternal temp of 100.8 prior to delivery-antibx given. Cord clamped x2, after 2 min delay, then cut by FOB. Placenta, membranes, and cord expelled at 1713, Barr presentation. Perineal and left labial lacerations repaired as above. EBL 250ml. FF at U-2. Hemostasis Patient tolerated procedure well. LABOR SUMMARY EDC: 04/27/2016 00:00 No. Babies in Womb: 1 Attempted: No Labor Anesthesia: Epidural LABOR INFORMATION Reason for Induction: Not Applicable Onset of Labor: 05/03/2016 09:00 Complete Dilatation: 05/03/2016 16:37 Cervical Ripening Agents: Cytotec @ Oxytocin: Augmentation Group B Beta Strep: negative Antibiotics # of Doses: 1 Antibiotics Time of Last Dose: 1645 Name of Antibiotic Given: unasyn Steroids Given: None Reason Steroids Not Administered: Not Applicable; Imminent Delivery MEMBRANES Membranes Rupture Method: Spontaneous Rupture of Membranes: 05/03/2016 02:00 Length of Rupture (hr): 15.12 Amniotic Fluid Color: Clear Amniotic Fluid Amount: Small Amniotic Fluid Odor: Normal STAGES OF LABOR Stage 1 hr: 7 Stage 1 min: 37 Stage 2 hr: 0 Stage 2 min: 30 Stage 3 hr: 0 Stage 3 min: 6 Total Time in Labor hr: 8 Total Time in Labor min: 13 VAGINAL DELIVERY Episiotomy: None Laceration Extension: N/A Laceration Type: Perineal Other Laceration: left labial Laceration Repair: Yes Laceration Repair Note: 1st degree perineal and left labial lacerations repaired in usual fashion using 2-0 and 3-0 chromic sutures Sponge Count Correct: N/A Sharps Count Correct: Yes BABY A INFORMATION Infant Delivery Date/Time: 05/03/2016 17:07 Method of Delivery: Vaginal Born in Route : No : N/A Forceps: N/A (Annotations: Data stored by CPN on behalf of user) Vacuum Extraction: N/A (Annotations: Data stored by CPN on behalf of user) Shoulder Dystocia : No PRESENTATION/POSITION BABY A Presentation: Cephalic Cephalic Presentation: Vertex (Annotations: Data stored by CPN on behalf of user) Vertex Position: Left Occipital Anterior (Annotations: Data stored by CPN on behalf of user) Breech Presentation: N/A (Annotations: Data stored by CPN on behalf of user) PLACENTA INFORMATION BABY A Placenta Delivery Time : 05/03/2016 17:13 (Annotations: Data stored by CPN on behalf of user) Placenta Method of Delivery: Spontaneous (Annotations: Data stored by CPN on behalf of user) Placenta Status: Delivered SCORES BABY A Heart Rate 1 min: >100 bpm Resp Effort 1 min: Good Cry Reflex Irritability 1 min: Cough or Sneeze or Pulls Away Muscle Tone 1 min: Active Motion Color 1 min: Body [place], Extremities Blue Resuscitation Effort 1 min: Tactile Stimulation SCORE 1 MIN: 9 Heart Rate 5 min: >100 bpm Resp Effort 5 min: Good Cry Reflex Irritability 5 min: Cough or Sneeze or Pulls Away Muscle Tone 5 min: Active Motion Color 5 min: Body [place], Extremities Blue Resuscitation Effort 5 min: Tactile Stimulation SCORE 5 MIN: 9 INFANT INFORMATION BABY A Gestational Age at Delivery: 40.6 Gestational Status: Full Term- 39- 40.6 Weeks Outcome : Liveborn (Annotations: Data stored by CPN on behalf of user) Infant Condition : Stable Infant Sex: Female (Annotations: Data stored by CPN on behalf of user) IDENTIFICATION BABY A Infant Verification Date/Time: 05/03/2016 17:35 ID Band Number: [id number] Mother's Name Verified: Yes Infant RN Verifying : Coral Donahue RN/ Sandy Keller CNA WEIGHT/LENGTH BABY A Birthweight (gm): 4050 Weight (lb): 8 Weight (oz): 15 Infant Length (in): 20.50 Infant Length (cm): 52.07 CORD INFORMATION BABY A No. Cord Vessels: 3 Nuchal Cord : N/A (Annotations: Data stored by [facility] on behalf of user) Cord Blood Taken: Yes-For Storage (Mom's Blood type +) Infant Suction: Mouth ASSESSMENT BABY A Infant Complications: None Physical Findings at Delivery: Caput Succedaneum; Molding of the Head Infant Respirations: Appears Normal Skin to Skin: Yes Extension Professor/ALS Called : No Infant Care By: Tonie Elkins RN Transferred To: Remains with Mother BABY B INFORMATION : N/A SIGNATURES Assignment: Shanta Bernard MD Signature: with User ID: [email or web address] : with User ID: [email or web address] : I personally evaluated and examined the patient in conjunction with the MLP and agree with the assessment, treatment plan and disposition.
--- NOTE | 2016-05-03 19:37 | Admission Physical ---
Datetime Report Generated by CPN: 05/03/2016 19:37 CURRENT ADMISSION Chief Complaint: Suspected Ruptured Membranes Indication for Induction: Not Applicable Admit Plan: Admit to Unit; Initiate Labor Induction Protocol ALLERGIES Medication Allergies: No Medication Allergies: No Known Allergies (05/03/2016) Latex: No Latex Allergies Food Allergies: none Environmental Allergies: none OBSTETRICAL HISTORY EDC: 04/27/2016 00:00 : 1 Para: 0 Term: 0 : 0 SAB: 0 IAB: 0 Ectopic: 0 Livin Cesareans: 0 VBACs: 0 Multiple Births: 0 Gestational Diabetes: No Rh Sensitization: No Incompetent Cervix: No HARRISON: No Infertility: No ART Treatment: No Uterine Anomaly: No IUGR: No Hx Previous C/S: No Macrosomia: No Hx Loss/Stillborn: No PIH: No Hx : No Placenta Previa/Abruption: No Depression/PP Depression: No PTL/PROM: No Post Hemorrhage: No Current Procedures: Ultrasound; NST Obstetrical History Comments: G1: Current SEE RECORDS Alcohol: No Marijuana : No Cocaine: No Other Illicit Drugs: No Cigarettes: Never Smoker. [id number] MEDICAL HISTORY Diabetes: No Blood Transfusion: No Pulmonary Disease (Asthma, TB): No Breast Disease: No Hypertension: No Masticator Surgery: No Heart Disease: No Hosp/Surgery: No Autoimmune Disorder: No Anesthetic Complications: No Kidney Disease: No Abnormal Pap Smear: Yes Neuro/Epilepsy: No Psychiatric Disorders: No Other Medical Diseases: No Hepatitis/Liver Disease: No Significant Family History: No Varicosities/Phlebitis: No Trauma/Violence : No Thyroid Dysfunction: Yes Medical History Comments: surgical: tonsils and adenoids BV this on synthroid this ASCUS HR HPV 2015 INFECTIOUS HISTORY Gonorrhea: No Genital Herpes: No Chlamydia: No Tuberculosis: No Syphilis: No Hepatitis: No HIV/AIDS Exposure: No Rash or Viral Illness: No HPV: Unknown Infectious History Comments: ASCUS HR HPV 2015 PHYSICAL EXAM General: Normal HEENT: Normal Neurologic: Normal Thyroid: Deferred Heart: Normal Lungs: Normal Breast: Deferred Back: Normal Abdomen: Normal Genitourinary Exam: Normal Extremities: Normal DTRs: Normal Pelvic Type: Adequate Vital Signs: Reviewed; Within Normal Limits VAGINAL EXAM Dilatation: 1 Effacement: 70 Station: -3 MEMBRANES Membranes: Ruptured Amniotic Fluid Color: Clear FETUS A EGA: 40.6 Monitoring: External US FHR- Baseline: 140 Variability: Moderate 6-25bpm Accelerations: 15X15 Decelerations: None FHR Category: Category I PLANS FOR LABOR AND DELIVERY Labor and Delivery: None Pain Management: Epidural Feeding Preference: Formula Benefit of Breast Feed Discussed: Yes Circumcision: N/A INFORMED CONSENT Signature: with User ID: [email or web address] : I personally evaluated and examined the patient in conjunction with the MLP and agree with the assessment, treatment plan and disposition.
[2016-05-03] MEDS ORDERED: DIPH/PERTUSS(ACELL)/TETANUS VAC/PF 0.5 ML SYR (>=10YO) IM PRN (19:44)
[2016-05-03] MEDS ORDERED: ACETAMINOPHEN WITH CODEINE #3 TABLET PO PRN ×2 (19:44)
[2016-05-03] MEDS ORDERED: BENZOCAINE/MENTHOL AEROSOL SPRAY 56 ML TOP PRN (19:44)
[2016-05-03] MEDS ORDERED: MEASLES,MUMPS&RUBELLA VACC/PF 0.5 ML VIAL SUBCUT PRN (19:44)
[2016-05-03] MEDS ORDERED: DIBUCAINE 1% OINTMENT 28 GM TP PRN (19:44)
[2016-05-03] MEDS ORDERED: ZOLPIDEM TARTRATE 5 MG TABLET PO PRN (19:44)
[2016-05-03] MEDS ORDERED: DOCUSATE SODIUM 100 MG CAPSULE PO ONE (20:30)
[2016-05-03] MEDS ORDERED: FERROUS SULFATE 325 MG TABLET PO ONE (20:30)
[2016-05-03] MEDS: IBUPROFEN 800 MG TABLET PO SCH (21:56)
[2016-05-04] MEDS: LEVOTHYROXINE SODIUM 0.05 MG TABLET PO SCH (05:13)
[2016-05-04] MEDS: IBUPROFEN 800 MG TABLET PO SCH ×3 (05:14→21:07)
--- NOTE | 2016-05-04 07:00 | L&D Flow Sheet ---
LD Flowsheet Datetime Report Generated by CPN: 05/04/2016 07:00 Datetime: 05/03/2016 19:15 Stage of : Recovery (Norma Breannalona, RN) Datetime: 05/03/2016 19:03 Stage of : Recovery (Norma Mercyfka, RN) NBP Sys/Zohra/Mean (mmHg): 116 (QS system process) : 64 (QS system process) : 84 (QS system process) Pulse: 81 (QS system process)
[2016-05-04 07:02] LABS: HEMATOCRIT 23.3 % (36.0-47.0); HGB HCT DIFFERENCE -0.8; MEAN CORPUSCULAR HEMOGLOBIN 24.2 pg (27.0-33.4); MEAN CORPUSCULAR VOLUME 76 fl (80-97); RED BLOOD COUNT 3.08 10^6/uL (3.72-5.28); RED CELL DISTRIBUTION WIDTH 16.5 % (11.5-14.0); WHITE BLOOD COUNT 15.8 10^3/uL (4.0-10.5)
[2016-05-04 07:09] LABS: HEMOGLOBIN 7.5 g/dL (12.0-15.5)
[2016-05-04] MEDS: PRENATAL VITAMIN W-O CA NO5/FE FUMARATE/FA CAPSULE PO SCH (09:37)
[2016-05-04] MEDS: ASCORBIC ACID 500 MG TABLET PO SCH ×2 (09:38→17:30)
[2016-05-04] MEDS: SENNOSIDES/DOCUSATE 8.6-50 MG 1 EACH TABLET PO SCH (09:38)
[2016-05-04] MEDS: FERROUS SULFATE 325 MG TABLET PO SCH ×3 (09:38→17:30)
[2016-05-04] MEDS: DOCUSATE SODIUM 100 MG CAPSULE PO SCH ×2 (09:38→17:31)
[2016-05-04] MEDS ORDERED: LEVOTHYROXINE SODIUM 0.05 MG TABLET PO SCH (10:00)
[2016-05-04] MEDS ORDERED: FERROUS SULFATE 325 MG TABLET PO SCH (10:00)
--- NOTE | 2016-05-04 11:25 | PDOC PROGRESS REPORT ---
Subjective-OB Subjective: Post Delivery Day: 20 year old. s/p vaginal delivery bottlefeeding bonding well with infant seen earlier this week at the office pt complained of dizziness anemia noted hgb down to 7.5 this morning continue iron supplementation reviewed with pt s/s of anemia recommend blood transfusion-pt not moving much due to vaginal tear/ currently sitting on donut discussed slow movements learning verbalized pt will think about transfusion Physical Exam (OB) Vital Signs: Temp Pulse Resp BP Pulse Ox 97.8 F 80 20 129/78 H 99 05/04/16 07:21 05/04/16 07:21 05/04/16 07:21 05/04/16 07:21 05/04/16 07:21 Intake & Output 05/03/16 05/04/16 05/05/16 06:59 06:59 06:59 Weight 69.45 kg - Lochia Lochia Amount: Scant < 10 ml Lochia Color: Rubra/Red - Abdomen Description: Tender, Soft Hernia Present: No Fundal Description: Firm, Midline Fundal Height: u/u - u/2 Objective-Diagnostic Laboratory: 05/04/16 06:50 05/04/16 06:50 WBC 15.8 H RBC 3.08 L Hgb 7.5 L Hct 23.3 L MCV 76 L MCH 24.2 L MCHC 32.0 RDW 16.5 H Plt Count 159
--- NOTE | 2016-05-04 18:00 | L&D General Admission ---
General Admit Datetime Report Generated by CPN: 05/04/2016 18:00 INFORMATION Patient Age: 20 (03/06/2016 11:17:QS system process) EDC: 04/27/2016 00:00 (05/03/2016 02:58:Tiana Morris RN) : 1 (05/03/2016 02:58:Evelia Jhaveri RN) Para: 0 (05/03/2016 02:58:Evelia Jhaveri RN) Term: 0 (05/03/2016 02:58:Evelia Jhaveri RN) : 0 (05/03/2016 02:58:Evelia Jhaveri RN) Spontaneous Abortions: 0 (05/03/2016 02:58:Evelia Jhaveri RN) Induced Abortions: 0 (05/03/2016 02:58:Evelia Jhaveri RN) Livin (05/03/2016 02:58:Evelia Jhaveri RN) Cesareans: 0 (05/03/2016 02:58:Tiana Morris RN) VBACs: 0 (05/03/2016 02:58:Tiana Morris RN) Ectopic: 0 (05/03/2016 02:58:Tiana Morris RN) Multiple Births: 0 (05/03/2016 02:58:Tiana Morris RN) Baby, Number in Womb: 1 (05/03/2016 02:58:Tiana Morris RN) CARE Primary Events Manager: [facility] (05/03/2016 02:58:Tiana Morris RN) Height (in): 61 (05/03/2016 19:36:QS system process) ALLERGIES Medication Allergy: No (05/03/2016 02:58:Tiana Morris RN) Medication Allergies: No Known Allergies (05/03/2016) (05/03/2016 03:05:QS system process) Latex Allergy: No Latex Allergies (05/03/2016 02:58:Tiana Morris RN) Food Allergies: none (05/03/2016 02:58:Tiana Morris RN) Environmental Allergies: none (05/03/2016 02:58:Tiana Morris RN) COMMUNICATION Primary Language: [place] Timorese (05/03/2016 02:58:Tiana Morris RN) Medical Tx Preferred Language: [place]orese (05/03/2016 02:58:Tiana Morris RN) DEMOGRAPHICS Address: [address] [place] [id number] (03/06/2016 11:17:QS system process) Zipcode: [address] (03/06/2016 11:17:QS system process) Home (03/06/2016 11:17:QS system process) SSN: [id number] (03/06/2016 11:17:QS system process) Next of Kin Name: [place] (03/06/2016 11:17:QS system process) Next of Kin (03/06/2016 11:17:QS system process) Next of Kin Relationship: OR (03/06/2016 11:17:QS system process) Date of : 1995 (03/06/2016 11:17:QS system process) Marital Status: Single (03/06/2016 11:17:QS system process) Sex: Female (03/06/2016 11:17:QS system process) Race: (03/06/2016 11:17:QS system process) Ethnicity: Non- or (03/06/2016 11:17:QS system process) Moravian: Temple (03/06/2016 11:17:QS system process) DRUG AND ALCOHOL USE Alcohol: No (05/03/2016 02:58:Dalila Arechiga RN) Cigarettes: Never Smoker. [id number] (05/03/2016 02:58:Dalila Arechiga RN) Marijuana: No (05/03/2016 02:58:Dalila Arechiga RN) Cocaine: No (05/03/2016 02:58:Dalila Arechiga RN) Other Illicit Drugs: No (05/03/2016 02:58:Dalila Arechiga RN) VACCINE HISTORY Influenza Vaccine: No (05/03/2016 02:58:Dalila Arechiga RN) Pneumococcal Vaccine: No (05/03/2016 02:58:Dalila Arechiga RN) Tetanus Vaccine: Yes (05/03/2016 02:58:Dalila Arechiga RN) Tdap Vaccine: Yes (05/03/2016 02:58:Dalila Arechiga RN) Hepatitis B Vaccine: Yes (05/03/2016 02:58:Dalila Arechiga RN) Ground Crew Lines Person: [facility] (05/03/2016 02:58:Dalila Arechiga RN) Feeding Preference: Formula (05/03/2016 02:58:Dalila Arechiga RN) Benefit of Breast Feed Discussed: Yes (05/03/2016 02:58:Dalila Arechiga RN) Circumcision: N/A (05/03/2016 02:58:Dalila Arechiga RN) Classes Attended: No (05/03/2016 02:58:Dalila Arechiga RN) Tubal Ligation: No (05/03/2016 02:58:Tiana Morris RN) Tubal Authorization Signed: N/A (05/03/2016 02:58:Tiana Morris RN) Consent: N/A (05/03/2016 02:58:Tiana Morris RN) Consent Signed: N/A (Annotations: Data stored by CPMarleny on behalf of user) (05/03/2016 02:58:Tiana Morris RN) Pain Management Plans: Epidural (05/03/2016 02:58:Dalila Arechiga RN) Plans for Labor and Delivery: None (05/03/2016 02:58:Dalila Arechiga RN) Support Person: Felix Moy (05/03/2016 02:58:Dalila Arechiga RN) Support Person Relationship: Significant Other (05/03/2016 02:58:Dalila Arechiga RN) Cultural/Spritual Practice: No (05/03/2016 02:58:Dalila Arechiga RN) Spir/Cult Dietary Needs: No (05/03/2016 02:58:Dalila Arechiga RN) LIVING SITUATION/DISCHARGE PLAN Living Arrangements: House (05/03/2016 02:58:Dalila Arechiga RN) Adequate Access to:: Electric; Heat; Refrigeration; Plumbing/Running water; Phone; Transportation (05/03/2016 02:58:Dalila Arechiga RN) WIC Program: Needs referral (05/03/2016 02:58:Dalila Arechiga RN) Discharge Software Test Technician Person: Felix (05/03/2016 02:58:Dalila Arechiga RN) Person to Help after Discharge: Felix (05/03/2016 02:58:Dalila Arechiga RN) Car Seat for Discharge: Yes (05/03/2016 02:58:Dalila Arechiga RN) Adoption Requested: No (05/03/2016 02:58:Dalila Arechiga RN) Pt Contact w/ Post : N/A (05/03/2016 02:58:Dalila Arechiga RN) LABS Blood Type: A Positive (05/03/2016 02:58:Evelia Jhaveri RN) Antibody Screen: negative (05/03/2016 02:58:Evelia Jhaveri RN) Hemoglobin: 7.5 L (Annotations: VERBAL RESULT GIVEN TO Ramiro CHAVEZ RN AT 0705 05/04/16 BY JESSICA SORTO. VERIFIED BY READ BACK.) (05/04/2016 06:50:QS system process) Hematocrit: 23.3 L (05/04/2016 06:50:QS system process) MCV: 76 L (05/04/2016 06:50:QS system process) Group Beta Strep: negative (05/03/2016 02:58:Evelia Jhaveri RN) Gonorrhea: Negative (05/03/2016 02:58:Evelia Jhaveri RN) Chlamydia: Negative (05/03/2016 02:58:Evelia Jhaveri RN) RPR/VDRL: Nonreactive (05/03/2016 02:58:Evelia Jhaveri RN) HIV Results: non-reactive (05/03/2016 02:58:Evelia Jhaveri RN) Hepatitis B: Negative (05/03/2016 02:58:Evelia Jhaveri RN) Rubella: Immune (05/03/2016 02:58:Evelia Jhaveri RN) Varicella: Non Susceptible (05/03/2016 02:58:Evelia Jhaveri RN) OB/PREVIOUS HISTORY Current Procedures: Ultrasound; NST (05/03/2016 02:58:Dalila Arechiga RN) History of Previous : No (05/03/2016 02:58:Dalila Arechiga RN) History of Gestational Diabetes: No (05/03/2016 02:58:Dalila Arechiga RN) History of PIH: No (05/03/2016 02:58:Dalila Arechiga RN) History of Incompetent Cervix: No (05/03/2016 02:58:Dalila Arechiga RN) History of Placenta Previa/Abrup: No (05/03/2016 02:58:Dalila Arechiga RN) History of Macrosomia: No (05/03/2016 02:58:Dalila Arechiga RN) History of IUGR: No (05/03/2016 02:58:Dalila Arechiga RN) History of Hemorrhage: No (05/03/2016 02:58:Dalila Arechiga RN) History of Loss/Stillborn: No (05/03/2016 02:58:Dalila Arechiga RN) History of : No (05/03/2016 02:58:Dalila Arechiga RN) History of D (Rh) Sensitization: No (05/03/2016 02:58:Dalila Arechiga RN) History Recurrent Loss/Stillborn: No (05/03/2016 02:58:Dalila Arechiga RN) History Depression/PP Depression: No (05/03/2016 02:58:Dalila Arechiga RN) History of Uterine Anomaly/HARRISON: No (05/03/2016 02:58:Dalila Arechiga RN) History of Infertility: No (05/03/2016 02:58:Dalila Arechiga RN) History of ART Treatment: No (05/03/2016 02:58:Dalila Arechiga RN) History of HARRISON: No (05/03/2016 02:58:Dalila Arechiga RN) Comments Obstetrical History: G1: Current (05/03/2016 02:58:Dalila Aerchiga RN) MEDICAL HISTORY Med Hx Diabetes: No (05/03/2016 02:58:Dalila Arechiga RN) Med Hx Hypertension: No (05/03/2016 02:58:Dalila Arechiga RN) Med Hx Heart Disease: No (05/03/2016 02:58:Dalila Arechiga RN) Med Hx Autoimmune Disorder: No (05/03/2016 02:58:Dalila Arechiga RN) Med Hx Kidney Disease/UTI: No (05/03/2016 02:58:Dalila Arechiga RN) Med Hx Neurologic/Epilepsy: No (05/03/2016 02:58:Dalila Arechiga RN) Med Hx Psychiatric Disorders: No (05/03/2016 02:58:Dalila Arechiga RN) Med Hx Hepatitis/Liver Disease: No (05/03/2016 02:58:Dalila Arechiga RN) Med Hx Varicosities/Phlebitis: No (05/03/2016 02:58:Dalila Arechiag RN) Med Hx Thyroid Dysfunction: Yes (05/03/2016 02:58:Dalila Arechiga RN) Med Hx Trauma/Violence: No (05/03/2016 02:58:Dalila Arechiga RN) Med Hx Blood Transfusion: No (05/03/2016 02:58:Dalila Arechiga RN) Med Hx Pulmonary (Asthma,TB): No (05/03/2016 02:58:Dalila Arechiga RN) Med Hx Breast: No (05/03/2016 02:58:Dalila Arechiga RN) Med Hx ENGINE HEAD REPAIRER Surgery: No (05/03/2016 02:58:Dalila Arehciga RN) Med Hx Hospitalization/Surgery: No (05/03/2016 02:58:Dalila Arechiga RN) Med Hx Anesthetic Complications: No (05/03/2016 02:58:Dalila Arechiga RN) Med Hx Abnormal Pap Smear: Yes (05/03/2016 02:58:Dalila Arechiga RN) Other Medical Diseases: No (05/03/2016 02:58:Dalila Arechiga RN) Med Hx Significant Family Hx: No (05/03/2016 02:58:Dalila Arechiga RN) Details of Med/Surg Hx: surgical: tonsils and adenoids BV this on synthroid this ASCUS HR HPV 2015 (05/03/2016 02:58:Dalila Arechiga RN) INFECTIOUS HISTORY Inf Hx Gonorrhea: No (05/03/2016 02:58:Dalila Arechiga RN) Inf Hx Chlamydia: No (05/03/2016 02:58:Dalila Arechiga RN) Inf Hx Syphilis: No (05/03/2016 02:58:Dalila Arechiga RN) Inf Hx HIV/AIDS: No (05/03/2016 02:58:Dalila Arechiga RN) Inf Hx Human Papilloma Virus: Unknown (05/03/2016 02:58:Dalila Arechiga RN) Inf Hx Pt/Partner Genital Herpes: No (05/03/2016 02:58:Dalila Arechiga RN) Inf Hx Tuberculosis/Exposure: No (05/03/2016 02:58:Dalila Arechiga RN) Inf Hx Hepatitis B,C: No (05/03/2016 02:58:Dalila Arechiga RN) Inf Hx Rash or Viral Illness: No (05/03/2016 02:58:Dalila Arechiga RN) Details of Infectious Hx: ASCUS HR HPV 2016 (05/03/2016 02:58:Dalila Arechiga RN) GENETIC HISTORY Gen Hx Age >=35 at [facility]: No (05/03/2016 02:58:Dalila Arechiga RN) Gen Hx Thalassemia: No (05/03/2016 02:58:Dalila Arechiga RN) Gen Hx Congenital Heart Defect: No (05/03/2016 02:58:Dalila Arechiga RN) Gen Hx Neural Tube Defect: No (05/03/2016 02:58:Dalila Arechiga RN) Gen Hx Down's Syndrome: No (05/03/2016 02:58:Dalila Arechiga RN) Gen Hx Michael-Sachs: No (05/03/2016 02:58:Dalila Arechiga RN) Gen Hx Eezkiel: No (05/03/2016 02:58:Dalila Arechiga RN) Gen Hx Familial Dysautonomia: No (05/03/2016 02:58:Dalila Arechiga RN) Gen Hx Sickle Cell Disease/Trait: No (05/03/2016 02:58:Dalila Arechiga RN) Gen Hx Hemophilia/Blood Disorder: No (05/03/2016 02:58:Dalila Arechiga RN) Gen Hx Muscular Dystrophy: No (05/03/2016 02:58:Dalila Arechiga RN) Gen Hx Cystic Fibrosis: No (05/03/2016 02:58:Dalila Arechiga RN) Gen Hx [place] Chorea: No (05/03/2016 02:58:Dalila Arechiga RN) Gen Hx Mental Retardation/Autism: No (05/03/2016 02:58:Dalila Arechiga RN) Gen Hx Tested for Fragile X: No (05/03/2016 02:58:Dalila Arechiga RN) Gen Hx Other Inher/Chromosomal: No (05/03/2016 02:58:Dalila Arechiga RN) Gen Hx Maternal Metabolic DO: No (05/03/2016 02:58:Dalila Arechiga RN) Gen Hx Pt Father or FOB Defect: No (05/03/2016 02:58:Dalila Arechiga RN) Gen Hx Other Genetic History: No (05/03/2016 02:58:Dalila Arechiga RN) Gen Hx Drugs/Meds since LMP: No (05/03/2016 02:58:Dalila Arechiga RN)
--- NOTE | 2016-05-04 18:00 | L&D Current Admission ---
Current Admit Datetime Report Generated by CPN: 05/04/2016 18:00 ADMISSION INFORMATION Current Admit Date/Time: 05/03/2016 03:35 (05/03/2016 03:35:Dalila Arechiga RN) Reason for Admission: Rupture of Membranes (05/03/2016 03:35:Dalila Arechiga RN) Chief Complaint: Suspected Rupture of Membranes (05/03/2016 03:15:Dalila Arechiga RN) Medications During : Vitamin; Levothyroxine Sodium (Synthroid); Acetaminophen (Tylenol) (05/03/2016 03:35:Dallia Arechiga RN) EGA per Dates: 40.6 (05/03/2016 03:35:QS system process) Method of Arrival: Wheelchair (05/03/2016 03:35:Dalila Arechiga RN) Admitted From: Home (05/03/2016 03:35:Dalila Arechiga RN) Reason for Induction: Not Applicable (05/03/2016 03:35:Dalila Arechiga RN) Records Available: Yes (05/03/2016 03:35:Dalila Arechiga RN) General Admission Information: Reviewed; Updated; Confirmed (05/03/2016 03:35:Dalila Arechiga RN) General Admission Reviewed By: Jan Arechiga RN (05/03/2016 03:35:Dalila Arechiga RN) BELONGINGS/ADVANCED DIRECTIVES Other Belongings: see [facility] belongings form (05/03/2016 03:35:Dalila Arechiga RN) Advance Direct for Healthcare: No, and Wants No Information (05/03/2016 03:35:Dalila Arechiga RN) Durable Power of Automotive Design Layout Drafter: No (05/03/2016 03:35:Dalila Arechiga RN) Living Will: No (05/03/2016 03:35:Dalila Arechiga RN) Organ Donor: Yes (05/03/2016 03:35:Dalila Arechiga RN) Pt Rights Information Given: Yes (05/03/2016 03:35:Dalila Arechiga RN) Pt Understands Pt Rights: Yes (05/03/2016 03:35:Dalila Arechiga RN) LEARNING ASSESSMENT Knowledge Level: Understands Diagnosis (05/03/2016 03:35:Dalila Arechiga RN) Barriers to Learning: Emotional State; Pain (05/03/2016 03:35:Dalila Arechiga RN) Learning Readiness: Motivated (05/03/2016 03:35:Dalila Arechiga RN) Learns Best By: 1 to 1 Instruction (05/03/2016 03:35:Dalila Arechiga RN) Learning Needs: Labor and Delivery Process; Pain Management; Symptoms to Report; Treatment Plan; Medication; Diagnosis; Nutrition; Equipment; Care; Community Resources (05/03/2016 03:35:Dalila Arechiga RN) DOMESTIC VIOLANCE SCREENING Dom Viol Threatened/Hurt: No (05/03/2016 03:35:Dalila Arechiga RN) Hx of Abuse/Neglect past 2yrs: No (05/03/2016 03:35:Dalila Arechiga RN) Feel Unsafe Going Home: No (05/03/2016 03:35:Dalila Arechiga RN) Addt'l Observ Indicating Abuse: No (05/03/2016 03:35:Dalila Arechiga RN) Reason Unable to Complete Screen: N/A, Screen Completed (05/03/2016 03:35:Dalila Arechiga RN) Considered Personal Harm/Suicide: No (05/03/2016 03:35:Dalila Arechiga RN) NUTRITIONAL/FUNCTIONAL SCREENING Problem with Appetite >5 Days: No (05/03/2016 03:35:Dalila Arechiga RN) Chew/Swallow Difficulties: No (05/03/2016 03:35:Dalila Arechiga RN) Inappropriate Wt Gain/Loss: No (05/03/2016 03:35:Dalila Arechiga RN) Presence Skin Breakdown/Ulcer: No (05/03/2016 03:35:Dalila Arechiga RN) Special Diet: No (05/03/2016 03:35:Dalila Arechiga RN) Pt Requests Automatic Splicing Machine Operator Visit: No (05/03/2016 03:35:Dalila Arechiga RN) Hx of Any of the Following?: N/A (05/03/2016 03:35:Dalila Arcehiga RN) New Diagnosis of: N/A (05/03/2016 03:35:Dalila Arechiga RN) Requires Assist w/Ambulation: No (05/03/2016 03:35:Dalila Arechiga RN) Uses Assist Device to Ambulate: No (05/03/2016 03:35:Dalila Arechiga RN) Pt Requires Help w/ADL's: No (05/03/2016 03:35:Dalila Arechiga RN)
--- NOTE | 2016-05-04 18:15 | L&D Care Plan ---
LD CARE PLANS Datetime Report Generated by CPN: 05/04/2016 18:15 Datetime: 05/03/2016 03:05 Pain State: Risk For (Tiana Morris RN) Related To: Labor and Delivery Process; Complication(s) of ; Treatment and Procedures; Post (Tiana Morris RN) Goal(s): Patients Pain will be Assessed and Managed; Patient will Verbalize Adequate Relief of Pain or the Ability to [place] with Current Pain (Tiana Morris RN) Interventions: Assess Pain Severity on Scale of 0 (None) to 5 (Severe); Assess Type, Location and Intensity of Pain Each Time Client Reports Discomfort and Notify Provider if Unusal Pain Develops; Encourage Proper Breathing and Relaxation Techniques; Offer Alternatives Such as Repositioning, Calm Environment, Massages, Diversional Activities, Ice Pack, Splinting, and Ambulation; Administer Analgesics as Ordered; Assist with Epidural Placement as Appropriate; Evaluate Therapeutic Effectiveness of Medication and Treatments (Tiana Morris RN) Outcome: Patient will Report Absence or Relief of Pain Consistent with Established Pain Goal (Tiana Morris RN) Outcome: Patient will have a Decrease in Signs and Symptoms of Discomfort (Tiana Morris RN) Outcome: Pain will be Controlled During Procedures (Tiana Morris RN) Anxiety State: Risk For (Tiana Morris RN) Related To: Labor and Delivery Process; Fear of Unknown; Situational Crisis; Medical Interventions; Significant Life Event (Tiana Morris RN) Goal(s): Patient will have Decreased Anxiety and be able to Function at Acceptable Levels (Tiana Morris RN) Interventions: Assess Verbal and Nonverbal Behavioral Indicators of Anxiety; Assist Patient to Identify and Verbalize Symptoms of Anxiety; Identify and Demonstrate Techniques to Control Anxiety; Assist Patient with Coping Mechanisms to Manage Anxiety; Provide Theraputic Touch for the Patient; Explain to Patient, Using a Calm Reassuring Approach and Nonmedical Terms, All Activities, Procedures, and Concerns; Instruct Patient and Family about Post Discharge Care, Limitations, Symptoms to Report and Resources Available (Tiana Morris RN) Outcome: Patient will Identify, Verbalize and Demonstrate Techniques to Control Anxiety (Tiana Morris RN) Outcome: Patient's Posture, Facial Expressions, Gestures and Activity Level will Reflect Decreased Anxiety (Tiana Morris RN) Outcome: Patient will Verbalize a Sense of Control and/or Acceptance of the Situation (Tiana Morris RN) Outcome: Patient will Identify and Utilize Support Person (Tiana Morris RN) Knowledge Deficit State: Risk For (Tiana Morris RN) Related To: Labor and Delivery Process; Treatment and Procedures; Impending Alterations in Family Dynamics; Feeding and Care; Community Resources and Available Support Mechanisms (Tiana Morris RN) Goal(s): Patient will Accurately Verbalize Understanding of Plan of Care and Treatment; Patient and Family will Accurately Verbalize Understanding of the Disease Process (Tiana Morris RN) Interventions: Assess Motivation and Willingness of Patient/Family to Learn; Assess Preferred Learning Mode: One to One Instruction, Reading, Videos, Group Discussion or Demonstration; Assess Barriers to Learning: Pain, Emotional State, Language Barrier, Cognitive Impairment, Visual or Hearing Deficits; Assess Patient and Family Knowledge of Disease Process, Medications and Treatment; Discuss Therapy and/or Treatment Options, Describe Rationale Behind Management, Therapy and Treatment Recommendations; Instruct Patient and Family on Signs and Symptoms to Report; Instruct Patient and Family on Medication Effects and Side Effects; Provide Appropriate and Timely Education Using Multiple Techniques; Provide Patient and Family with Support Group Information and Resources; Give Clear and Thorough Explanations and Demonstrations (Tiana Morris RN) Outcome: Patient and Family will Verbalize Understanding of Condition, Treatment and Signs and Symptoms to Report (Tiana Morris RN) Outcome: Patient will Identify Perceived Learning Needs and Express Motivation to Learn (Tiana Morris RN) Outcome: Patient will Verbalize Understanding of Desired Content, and/or Performs Desired Skill Prior to Discharge (Tiana Morris RN) Infection State: Risk For (Tiana Morris RN) Related To: Prolonged Labor or Induction; Premature/Prolonged Rupture of Membranes; Invasive Procedures; Altered Tissue Integrity (Tiana Morris RN) Goal(s): The Patient will be Free of Infection, Vital Signs Stable and Lab Work within Normal Parameters (Tiana Morris RN) Interventions: Instruct and Reinforce Proper Handwashing, Hygiene, and Care Techniques to Patient and Family; Monitor Vital Signs; Monitor Patient for the Following Signs of Infection: Fever, Abdominal Tenderness, Unusual Discharge; Monitor Aminiotic Fluid, Urine and Lochia for Color and Odor; Observe Wounds, Incisions and Invasive Line Sites for Redness, Drainage and Edema; Assess IV Sites per Hospital Policy; Monitor Lab and Test Results and Notify Provider of Abnormal Findings; Assess Nutritional Status and Promote Good Nutrition (Tiana Morris RN) Outcome: Patient will Remain Free of Infection (Tiana Morris RN) Outcome: Infection will be Recognized Early to Allow for Prompt Treatment (Tiana Morris RN) Outcome: Patient will have Vital Signs Within Expected Range (Tiana Morris RN) Fluid Volume State: Risk For (Tiana Morris RN) Related To: Prolonged Labor or Induction; Anesthesia (Tiana Morris RN) Goal(s): Patient will Achieve and Maintain a Balanced Fluid Volume Status; Hemodynamically Stable (Tiana Morris RN) Interventions: Monitor Vital Signs; Auscultate Breath Sounds; Monitor Patient for Skin Turgor, Mucous Membranes, Dry Skin, Weakness, Headaches and Confusion; Provide Oral Fluids as Ordered; Initiate and Maintain Intravenous Fluids as Ordered; Monitor Intake and Output as Indicated Per Patient Status; Accurately Measure Blood Loss; Monitor Lab and Test Results as Obtained and Notify Provider of Abnormal Findings; Monitor Patient's Weight (Tiana Morris RN) Outcome: Patient will have Clear Lung Sounds (Tiana Morris RN) Outcome: Patient will have Vital Signs within Expected Range (Tiana Morris RN) Outcome: Urine Output will be within Expected Range (Tiana Morris RN) Outcome: Patient will have Minimal Generalized or Upper Extremity Edema (Tiana Morris RN)
[2016-05-05] MEDS: IBUPROFEN 800 MG TABLET PO SCH ×2 (05:34→14:05)
[2016-05-05] MEDS: LEVOTHYROXINE SODIUM 0.05 MG TABLET PO SCH (05:35)
--- NOTE | 2016-05-05 06:00 | L&D Current Admission ---
Current Admit Datetime Report Generated by CPN: 05/05/2016 06:00 ADMISSION INFORMATION Current Admit Date/Time: 05/03/2016 03:35 (05/03/2016 03:35:Dalila Arechiga RN) Reason for Admission: Rupture of Membranes (05/03/2016 03:35:Dalila Arechiga RN) Chief Complaint: Suspected Rupture of Membranes (05/03/2016 03:15:Dalila Arechiga RN) Medications During : Vitamin; Levothyroxine Sodium (Synthroid); Acetaminophen (Tylenol) (05/03/2016 03:35:Dalila Arechiga RN) EGA per Dates: 40.6 (05/03/2016 03:35:QS system process) Method of Arrival: Wheelchair (05/03/2016 03:35:Dalila Arechiga RN) Admitted From: Home (05/03/2016 03:35:Dalila Arechiga RN) Reason for Induction: Not Applicable (05/03/2016 03:35:Dalila Arechiga RN) Records Available: Yes (05/03/2016 03:35:Dalila Arechiga RN) General Admission Information: Reviewed; Updated; Confirmed (05/03/2016 03:35:Dalila Arechiga RN) General Admission Reviewed By: Jan Arechiga RN (05/03/2016 03:35:Dalila Arechiga RN) BELONGINGS/ADVANCED DIRECTIVES Other Belongings: see [facility] belongings form (05/03/2016 03:35:Dalila Arechiga RN) Advance Direct for Healthcare: No, and Wants No Information (05/03/2016 03:35:Dalila Arechiga RN) Durable Power of Family Development Extension Specialist: No (05/03/2016 03:35:Dalila Arechiga RN) Living Will: No (05/03/2016 03:35:Dalila Arechiga RN) Organ Donor: Yes (05/03/2016 03:35:Dalila Arechiga RN) Pt Rights Information Given: Yes (05/03/2016 03:35:Dalila Arechiga RN) Pt Understands Pt Rights: Yes (05/03/2016 03:35:Dailla Arechiga RN) LEARNING ASSESSMENT Knowledge Level: Understands Diagnosis (05/03/2016 03:35:Dalila Arechiga RN) Barriers to Learning: Emotional State; Pain (05/03/2016 03:35:Dalila Arechiga RN) Learning Readiness: Motivated (05/03/2016 03:35:Dalila Arechiga RN) Learns Best By: 1 to 1 Instruction (05/03/2016 03:35:Dalila Arechiga RN) Learning Needs: Labor and Delivery Process; Pain Management; Symptoms to Report; Treatment Plan; Medication; Diagnosis; Nutrition; Equipment; Care; Community Resources (05/03/2016 03:35:Dalila Arechiga RN) DOMESTIC VIOLANCE SCREENING Dom Viol Threatened/Hurt: No (05/03/2016 03:35:Dalila Arechiga RN) Hx of Abuse/Neglect past 2yrs: No (05/03/2016 03:35:Dalila Arechiga RN) Feel Unsafe Going Home: No (05/03/2016 03:35:Dalila Arechiga RN) Addt'l Observ Indicating Abuse: No (05/03/2016 03:35:Dalila Arechiga RN) Reason Unable to Complete Screen: N/A, Screen Completed (05/03/2016 03:35:Dalila Arechiga RN) Considered Personal Harm/Suicide: No (05/03/2016 03:35:Dalila Arechiga RN) NUTRITIONAL/FUNCTIONAL SCREENING Problem with Appetite >5 Days: No (05/03/2016 03:35:Dalila Arechiga RN) Chew/Swallow Difficulties: No (05/03/2016 03:35:Dalila Arechiga RN) Inappropriate Wt Gain/Loss: No (05/03/2016 03:35:Dalila Arechiga RN) Presence Skin Breakdown/Ulcer: No (05/03/2016 03:35:Dalila Arechiga RN) Special Diet: No (05/03/2016 03:35:Dalila Arechiga RN) Pt Requests Customer Development Manager Visit: No (05/03/2016 03:35:Dalila Arechiga RN) Hx of Any of the Following?: N/A (05/03/2016 03:35:Dalila Arechiga RN) New Diagnosis of: N/A (05/03/2016 03:35:Dalila Arechiga RN) Requires Assist w/Ambulation: No (05/03/2016 03:35:Dalila Arechiga RN) Uses Assist Device to Ambulate: No (05/03/2016 03:35:Dalila Arechiga RN) Pt Requires Help w/ADL's: No (05/03/2016 03:35:Dalila Arechiga RN)
--- NOTE | 2016-05-05 06:00 | L&D General Admission ---
General Admit Datetime Report Generated by CPN: 05/05/2016 06:00 INFORMATION Patient Age: 20 (03/06/2016 11:17:QS system process) EDC: 04/27/2016 00:00 (05/03/2016 02:58:Tiana Morris RN) : 1 (05/03/2016 02:58:Evelia Jhaveri RN) Para: 0 (05/03/2016 02:58:Evelia Jhaveri RN) Term: 0 (05/03/2016 02:58:Evelia Jhaveri RN) : 0 (05/03/2016 02:58:Evelia Jhaveri RN) Spontaneous Abortions: 0 (05/03/2016 02:58:Evelia Jhaveri RN) Induced Abortions: 0 (05/03/2016 02:58:Evelia Jhaveri RN) Livin (05/03/2016 02:58:Evelia Jhaveri RN) Cesareans: 0 (05/03/2016 02:58:Tiana Morris RN) VBACs: 0 (05/03/2016 02:58:Tiana Morris RN) Ectopic: 0 (05/03/2016 02:58:Tiana Morris RN) Multiple Births: 0 (05/03/2016 02:58:Tiana Morris RN) Baby, Number in Womb: 1 (05/03/2016 02:58:Tiana Morris RN) CARE Primary Industrial Order Clerk: [facility] (05/03/2016 02:58:Tiana Morris RN) Height (in): 61 (05/03/2016 19:36:QS system process) ALLERGIES Medication Allergy: No (05/03/2016 02:58:Tiana Morris RN) Medication Allergies: No Known Allergies (05/03/2016) (05/03/2016 03:05:QS system process) Latex Allergy: No Latex Allergies (05/03/2016 02:58:Tiana Morris RN) Food Allergies: none (05/03/2016 02:58:Tiana Morris RN) Environmental Allergies: none (05/03/2016 02:58:Tiana Morris RN) COMMUNICATION Primary Language: Yemeni (05/03/2016 02:58:Tiana Morris RN) Medical Tx Preferred Language: Yemeni (05/03/2016 02:58:Tiana Morris RN) DEMOGRAPHICS Address: [address] [place] [id number] (03/06/2016 11:17:QS system process) Zipcode: [address] (03/06/2016 11:17:QS system process) Home (03/06/2016 11:17:QS system process) SSN: [id number] (03/06/2016 11:17:QS system process) Next of Kin Name: [place] (03/06/2016 11:17:QS system process) Next of Kin (03/06/2016 11:17:QS system process) Next of Kin Relationship: OR (03/06/2016 11:17:QS system process) Date of : 1995 (03/06/2016 11:17:QS system process) Marital Status: Single (03/06/2016 11:17:QS system process) Sex: Female (03/06/2016 11:17:QS system process) Race: (03/06/2016 11:17:QS system process) Ethnicity: Non- or (03/06/2016 11:17:QS system process) Uatsdin: Church (03/06/2016 11:17:QS system process) DRUG AND ALCOHOL USE Alcohol: No (05/03/2016 02:58:Dalila Arechiga RN) Cigarettes: Never Smoker. [id number] (05/03/2016 02:58:Dalila Arechiga RN) Marijuana: No (05/03/2016 02:58:Dalila Arechiga RN) Cocaine: No (05/03/2016 02:58:Dalila Arechiga RN) Other Illicit Drugs: No (05/03/2016 02:58:Dalila Arechiga RN) VACCINE HISTORY Influenza Vaccine: No (05/03/2016 02:58:Dalila Arechiga RN) Pneumococcal Vaccine: No (05/03/2016 02:58:Dalila Arechiga RN) Tetanus Vaccine: Yes (05/03/2016 02:58:Dalila Arechiga RN) Tdap Vaccine: Yes (05/03/2016 02:58:Dalila Arechiga RN) Hepatitis B Vaccine: Yes (05/03/2016 02:58:Dalila Arechiga RN) Metal Bonding Crib Attendant: [facility] (05/03/2016 02:58:Dalila Arechiga RN) Feeding Preference: Formula (05/03/2016 02:58:Dalila Arechiga RN) Benefit of Breast Feed Discussed: Yes (05/03/2016 02:58:Dalila Arechiga RN) Circumcision: N/A (05/03/2016 02:58:Dalila Arechiga RN) Classes Attended: No (05/03/2016 02:58:Dalila Arechiga RN) Tubal Ligation: No (05/03/2016 02:58:Tiana Morris RN) Tubal Authorization Signed: N/A (05/03/2016 02:58:Tiana Morris RN) Consent: N/A (05/03/2016 02:58:Tiana Morris RN) Consent Signed: N/A (Annotations: Data stored by CPMarleny on behalf of user) (05/03/2016 02:58:Tiana Morris RN) Pain Management Plans: Epidural (05/03/2016 02:58:Dalila Arechiga RN) Plans for Labor and Delivery: None (05/03/2016 02:58:Dalila Arechiga RN) Support Person: Felix Moy (05/03/2016 02:58:Dalila Arechiga RN) Support Person Relationship: Significant Other (05/03/2016 02:58:Dalila Arechiga RN) Cultural/Spritual Practice: No (05/03/2016 02:58:Dalila Arechiga RN) Spir/Cult Dietary Needs: No (05/03/2016 02:58:Dalila Arechiga RN) LIVING SITUATION/DISCHARGE PLAN Living Arrangements: House (05/03/2016 02:58:Dalila Arechiga RN) Adequate Access to:: Electric; Heat; Refrigeration; Plumbing/Running water; Phone; Transportation (05/03/2016 02:58:Dalila Arechiga RN) WIC Program: Needs referral (05/03/2016 02:58:Dalila Arechiga RN) Discharge Patient Access Specialist Person: Felix (05/03/2016 02:58:Dalila Arechiga RN) Person to Help after Discharge: Felix (05/03/2016 02:58:Dalila Arechiga RN) Car Seat for Discharge: Yes (05/03/2016 02:58:Dalila Arechiga RN) Adoption Requested: No (05/03/2016 02:58:Dalila Arechiga RN) Pt Contact w/ Post : N/A (05/03/2016 02:58:Dalila Arechiga RN) LABS Blood Type: A Positive (05/03/2016 02:58:Evelia Jhaveri RN) Antibody Screen: negative (05/03/2016 02:58:Evelia Jhaveri RN) Hemoglobin: 7.5 L (Annotations: VERBAL RESULT GIVEN TO Ramiro CHAVEZ RN AT 0705 05/04/16 BY JESSICA SORTO. VERIFIED BY READ BACK.) (05/04/2016 06:50:QS system process) Hematocrit: 23.3 L (05/04/2016 06:50:QS system process) MCV: 76 L (05/04/2016 06:50:QS system process) Group Beta Strep: negative (05/03/2016 02:58:Evelia Jhaveri RN) Gonorrhea: Negative (05/03/2016 02:58:Evelia Jhaveri RN) Chlamydia: Negative (05/03/2016 02:58:Evelia Jhaveri RN) RPR/VDRL: Nonreactive (05/03/2016 02:58:Evelia Jhaveri RN) HIV Results: non-reactive (05/03/2016 02:58:Evelia Jhaveri RN) Hepatitis B: Negative (05/03/2016 02:58:Evelia Jhaveri RN) Rubella: Immune (05/03/2016 02:58:Evelia Jhaveri RN) Varicella: Non Susceptible (05/03/2016 02:58:Evelia Jhaevri RN) OB/PREVIOUS HISTORY Current Procedures: Ultrasound; NST (05/03/2016 02:58:Dalila Arechiga RN) History of Previous : No (05/03/2016 02:58:Dalila Arechiga RN) History of Gestational Diabetes: No (05/03/2016 02:58:Dalila Arechiga RN) History of PIH: No (05/03/2016 02:58:Dalila Arechiga RN) History of Incompetent Cervix: No (05/03/2016 02:58:Dalila Arechiga RN) History of Placenta Previa/Abrup: No (05/03/2016 02:58:Dalila Arechiga RN) History of Macrosomia: No (05/03/2016 02:58:Dalila Arechiga RN) History of IUGR: No (05/03/2016 02:58:Dalila Arechiga RN) History of Hemorrhage: No (05/03/2016 02:58:Dalila Arechiga RN) History of Loss/Stillborn: No (05/03/2016 02:58:Dalila Arechiga RN) History of : No (05/03/2016 02:58:Dalila Arechiga RN) History of D (Rh) Sensitization: No (05/03/2016 02:58:Dalila rAechiga RN) History Recurrent Loss/Stillborn: No (05/03/2016 02:58:Dalila Arechiga RN) History Depression/PP Depression: No (05/03/2016 02:58:Dalila Arechiga RN) History of Uterine Anomaly/HARRISON: No (05/03/2016 02:58:Dalila Arechiga RN) History of Infertility: No (05/03/2016 02:58:Dalila Arechiga RN) History of ART Treatment: No (05/03/2016 02:58:Dalila Arechiga RN) History of HARRISON: No (05/03/2016 02:58:Dalila Arechiga RN) Comments Obstetrical History: G1: Current (05/03/2016 02:58:Dalila Arechiga RN) MEDICAL HISTORY Med Hx Diabetes: No (05/03/2016 02:58:Dalila Arechiga RN) Med Hx Hypertension: No (05/03/2016 02:58:Dalila Arechiga RN) Med Hx Heart Disease: No (05/03/2016 02:58:Dalila Arechiga RN) Med Hx Autoimmune Disorder: No (05/03/2016 02:58:Dalila Arechiga RN) Med Hx Kidney Disease/UTI: No (05/03/2016 02:58:Dalila Arechiga RN) Med Hx Neurologic/Epilepsy: No (05/03/2016 02:58:Dalila Arechiga RN) Med Hx Psychiatric Disorders: No (05/03/2016 02:58:Dalila Arechiga RN) Med Hx Hepatitis/Liver Disease: No (05/03/2016 02:58:Dalila Arechiga RN) Med Hx Varicosities/Phlebitis: No (05/03/2016 02:58:Dalila Arechiga RN) Med Hx Thyroid Dysfunction: Yes (05/03/2016 02:58:Dalila Arechiga RN) Med Hx Trauma/Violence: No (05/03/2016 02:58:Dalila Arechiga RN) Med Hx Blood Transfusion: No (05/03/2016 02:58:Dalila Arechiga RN) Med Hx Pulmonary (Asthma,TB): No (05/03/2016 02:58:Dalila Arechiga RN) Med Hx Breast: No (05/03/2016 02:58:Dalila Arechiga RN) Med Hx LIBRARY MEDIA SPECIALIST Surgery: No (05/03/2016 02:58:Dalila Arechiga RN) Med Hx Hospitalization/Surgery: No (05/03/2016 02:58:Dalila Arechiga RN) Med Hx Anesthetic Complications: No (05/03/2016 02:58:Dalila Arechiga RN) Med Hx Abnormal Pap Smear: Yes (05/03/2016 02:58:Dalila Arechiga RN) Other Medical Diseases: No (05/03/2016 02:58:Dalila Arechiga RN) Med Hx Significant Family Hx: No (05/03/2016 02:58:Dalila Arechiga RN) Details of Med/Surg Hx: surgical: tonsils and adenoids BV this on synthroid this ASCUS HR HPV 2015 (05/03/2016 02:58:Dalila Arechiga RN) INFECTIOUS HISTORY Inf Hx Gonorrhea: No (05/03/2016 02:58:Dalila Arechiga RN) Inf Hx Chlamydia: No (05/03/2016 02:58:Dalila Arechiga RN) Inf Hx Syphilis: No (05/03/2016 02:58:Dalila Arechiga RN) Inf Hx HIV/AIDS: No (05/03/2016 02:58:Dalila Arechiga RN) Inf Hx Human Papilloma Virus: Unknown (05/03/2016 02:58:Dalila Arechiga RN) Inf Hx Pt/Partner Genital Herpes: No (05/03/2016 02:58:Dlaila Arechiga RN) Inf Hx Tuberculosis/Exposure: No (05/03/2016 02:58:Dalila Arechiga RN) Inf Hx Hepatitis B,C: No (05/03/2016 02:58:Dalila Arechiga RN) Inf Hx Rash or Viral Illness: No (05/03/2016 02:58:Dalila Arechiga RN) Details of Infectious Hx: ASCUS HR HPV 2016 (05/03/2016 02:58:Dalila Arechiga RN) GENETIC HISTORY Gen Hx Age >=35 at MARK[facility]: No (05/03/2016 02:58:Dalila Arechiga RN) Gen Hx Thalassemia: No (05/03/2016 02:58:Dalila Arechiga RN) Gen Hx Congenital Heart Defect: No (05/03/2016 02:58:Dalila Arechiga RN) Gen Hx Neural Tube Defect: No (05/03/2016 02:58:Dalila Arechiga RN) Gen Hx Down's Syndrome: No (05/03/2016 02:58:Dalila Arechiga RN) Gen Hx Michael-Sachs: No (05/03/2016 02:58:Dalila Arechiga RN) Gen Hx Ezekiel: No (05/03/2016 02:58:Dalila Arechiga RN) Gen Hx Familial Dysautonomia: No (05/03/2016 02:58:Dalila Arechiga RN) Gen Hx Sickle Cell Disease/Trait: No (05/03/2016 02:58:Dalila Arechiga RN) Gen Hx Hemophilia/Blood Disorder: No (05/03/2016 02:58:Dalila Arcehiga RN) Gen Hx Muscular Dystrophy: No (05/03/2016 02:58:Dalila Arechiga RN) Gen Hx Cystic Fibrosis: No (05/03/2016 02:58:Dalila Arechiga RN) Gen Hx Huntingtons Chorea: No (05/03/2016 02:58:Dalila Arechiga RN) Gen Hx Mental Retardation/Autism: No (05/03/2016 02:58:Dalila Arechiga RN) Gen Hx Tested for Fragile X: No (05/03/2016 02:58:Dalila Arechiga RN) Gen Hx Other Inher/Chromosomal: No (05/03/2016 02:58:Dalila Arechiga RN) Gen Hx Maternal Metabolic DO: No (05/03/2016 02:58:Dalila Arechiga RN) Gen Hx Pt Father or FOB Defect: No (05/03/2016 02:58:Dalila Arechiga RN) Gen Hx Other Genetic History: No (05/03/2016 02:58:Dalila Arechiga RN) Gen Hx Drugs/Meds since LMP: No (05/03/2016 02:58:Dalila Arechiga RN)
--- NOTE | 2016-05-05 08:38 | PDOC DISCHARGE SUMMARY ---
Final Diagnosis Discharge Date: 05/05/16 - Final Diagnosis (1) Vaginal delivery Is this a current diagnosis for this admission?: Yes (2) Anemia due to acute blood loss Is this a current diagnosis for this admission?: Yes Discharge Data - Discharge Medication Home Medications: Acetaminophen [Tylenol Extra Strength 500 mg Tablet] 2 tab PO ASDIR PRN Calcium Carbonate [Tums Chewable 500 mg Tab.chew] 500 mg PO ASDIR PRN 05/03/16 Ferrous Sulfate [Iron] 1 tab PO BID 05/03/16 Levothyroxine Sodium [Synthroid] 1 tab PO DAILY 05/03/16 Pnv No.122/Iron/Folic Acid [ Multi Tablet] 1 tab PO DAILY 05/03/16 Reason(s) for Admission: PROM Procedures: NST Intrapartum Procedure(s): Spontaneous Vaginal Delivery Complication(s): Laceration-Perineal, Laceration-Labial Laceration-Degree: 1st - Diagnosis Test Laboratory: Temp Pulse Resp BP Pulse Ox 98.6 F 84 16 119/66 100 05/04/16 20:01 05/04/16 20:01 05/04/16 20:01 05/04/16 20:01 05/04/16 20:01 05/03/16 05/03/16 05/04/16 03:05 03:23 06:50 RBC 3.62 L 3.08 L Hgb 9.1 L 7.5 L Hct 27.2 L 23.3 L Urine Opiates Screen NEGATIVE - Discharge information/Instructions Discharge Activity: Activity As Tolerated, Pelvic Rest Discharge Diet: Regular Disposition: HOME, SELF-CARE Follow up with: [facility] in: 4, Weeks
[2016-05-05 09:00] VITALS: BP 132/88
[2016-05-05] MEDS: PRENATAL VITAMIN W-O CA NO5/FE FUMARATE/FA CAPSULE PO SCH (10:12)
[2016-05-05] MEDS: DOCUSATE SODIUM 100 MG CAPSULE PO SCH (10:12)
[2016-05-05] MEDS: FERROUS SULFATE 325 MG TABLET PO SCH (10:12)
[2016-05-05] MEDS: ASCORBIC ACID 500 MG TABLET PO SCH (10:12)
[2016-05-05] MEDS: SENNOSIDES/DOCUSATE 8.6-50 MG 1 EACH TABLET PO SCH (10:13)
== END 2016-05-05 15:15 | disposition home or self-care (01) | DRG 774 ==
LOC: LC 02:46 → LR 03:04 → 2S 19:33
PROVIDERS: ADMIT Obstetrics & Gynecology; ATTEND Obstetrics & Gynecology
PROC: 10E0XZZ Delivery of Products of Conception, External Approach (ICD-10-PCS; principal; 2016-05-03)
PROC: 0HQ9XZZ Repair Perineum Skin, External Approach (ICD-10-PCS; 2016-05-03)
PROC: 4A1HXCZ Monitoring of Products of Conception, Cardiac Rate, External Approach (ICD-10-PCS; 2016-05-03)
DX: O48.0 Post-term pregnancy (principal); O75.2 Pyrexia during labor, not elsewhere classified; D62 Acute posthemorrhagic anemia; O70.0 First degree perineal laceration during delivery; O99.02 Anemia complicating childbirth; Z3A.40 40 weeks gestation of pregnancy; Z37.0 Single live birth
CPT/HCPCS: 36415; 80307; 81005; 85025; 85027; 86592; 86850; 86900; 86901; 88307; 94760; J0295; J2300; J2550; J2590; J3490

== ENCOUNTER 2016-05-10 18:55 | Emergency (ER) | payer MEDICAID ==
--- NOTE | 2016-05-10 20:01 | ER Document Report ---
ED Medical Screen (RME) - General Stated Complaint: URINARY PAIN Notes: patient is a 20 year old female p/w post urinary burning delivered vaginally a 41 week old girl on 05/03 complaining of pyuria, vaginal burning and vaginal bleeding I have greeted and performed a rapid initial assessment of this patient. A comprehensive ED assessment and evaluation of the patient, analysis of test results and completion of the medical decision making process will be conducted by additional ED providers. TRAVEL OUTSIDE OF THE [place] IN LAST 30 DAYS: No - Related Data Allergies/Adverse Reactions: No Known Allergies Allergy (Unverified 05/03/16 03:05)
[2016-05-10 20:35] LABS: APPEARANCE,URINE CLOUDY; BILIRUBIN,URINE NEGATIVE (NEGATIVE); GLUCOSE, URINE NEGATIVE (NEGATIVE); KETONES,URINE NEGATIVE (NEGATIVE); LEUKOCYTE ESTERASE,URINE LARGE (NEGATIVE); NITRITE,URINE NEGATIVE (NEGATIVE); PROTEIN,URINE 100 mg/dL (NEGATIVE); URINE SPECIFIC GRAVITY 1.027; UROBILINOGEN,URINE NEGATIVE mg/dL (<2.0)
--- NOTE | 2016-05-11 01:24 | ER Document Report ---
ED General - General Chief Complaint: Urinary Problem Stated Complaint: URINARY PAIN Notes: Patient is a 20-year-old female presents with complaint of some dysuria. She is 7 days . Symptoms started 2 days ago. No fevers. No vomiting. No diarrhea. Some mild suprapubic cramping. No other complaints at this time. She still has some vaginal bleeding. Vaginal bleeding is slowly decreased since the delivery. She had a vaginal delivery. Only complication was episiotomy repair. TRAVEL OUTSIDE OF THE [place] IN LAST 30 DAYS: No - Related Data Allergies/Adverse Reactions: No Known Allergies Allergy (Unverified 05/03/16 03:05) Past Medical History - Social History Smoking Status: Never Smoker Chew tobacco use (# tins/day): No Frequency of alcohol use: None Drug Abuse: None Family History: Reviewed & Not Pertinent Patient has suicidal ideation: No Patient has homicidal ideation: No Renal/ Medical History: Denies: Hx Peritoneal Dialysis Review of Systems - Review of Systems Notes: My Normal Review Basic REVIEW OF SYSTEMS: CONSTITUTIONAL : Denies fever, chills, or sweats. Denies recent illness. EENT: Denies eye, ear, throat, or mouth pain or symptoms. Denies nasal or sinus congestion. CARDIOVASCULAR: Denies chest pain. RESPIRATORY: Denies cough, cold, or chest congestion. Denies shortness of breath, difficulty breathing, or wheezing. GASTROINTESTINAL: Denies abdominal pain. Denies nausea, vomiting, or diarrhea. Denies constipation. Last BM: GENITOURINARY: Dysuria FEMALE GENITOURINARY: Some vaginal bleeding. No abnormal vaginal discharge. MUSCULOSKELETAL: Denies neck or back pain or joint pain or swelling. SKIN: Denies rash or skin lesions. NEUROLOGICAL: Denies altered mental status or loss of consciousness. Denies headache. Denies weakness or paralysis or loss of use of either side. Denies problems with gait or speech. Denies sensory or motor loss. ALL OTHER SYSTEMS REVIEWED AND NEGATIVE. Physical Exam - Vital signs Vitals: Temp Pulse Resp BP Pulse Ox 99.3 F 55 L 20 152/93 H 100 05/10/16 19:07 05/10/16 19:07 05/10/16 19:07 05/10/16 19:07 05/10/16 19:07 - Notes Notes: General Appearance: Well nourished, alert, cooperative, no acute distress, no obvious discomfort. Well-appearing. Vitals: reviewed, See vital signs table. Head: no swelling or tenderness to the head Eyes: PERRL, EOMI, Conjuctiva clear Mouth: No decreasd moisture Lungs: No wheezing, No rales, No rhonci, No accessory muscle use, good air exchange bilaterally. Heart: Normal rate, Regular rythm, No murmur, no rub Abdomen: Normal BS, soft, No rigidity, No reproducible abdominal tenderness to palpation, No guarding, no rebound, no abdominal masses, no organomegaly Pelvic: Extremities: strength 5/5 in all extremities, good pulses in all extremities, no swelling or tenderness in the extremities, no edema. Skin: warm, dry, appropriate color, no rash Neuro: speech clear, oriented x 3, normal affect, responds appropriately to questions. Course - Vital Signs Vital signs: Temp Pulse Resp BP Pulse Ox 99.3 F 55 L 20 152/93 H 100 05/10/16 19:07 05/10/16 19:07 05/10/16 19:07 05/10/16 19:07 05/10/16 19:07 - Laboratory Laboratory results interpreted by me: 05/10/16 20:05 Urine Protein 100 H Urine Blood LARGE H Ur Leukocyte Esterase LARGE H Urine Ascorbic Acid 40 H - Transfer of Care Notes: 05/11/16 01:41 Patient will be discharged home. I did do a pelvic exam which showed a, bloody discharge. She would not allow me to the speculum exam due to her concern for pain from this. Her episiotomy site is well-appearing. I suspect she most likely has UTI. I did place her on Cipro for this. Being that she is still some concern for endometritis even though this seems much less likely. I will place on doxycycline. I strongly encouraged her to return to ER immediately if she has abdominal pain, fevers, foul-smelling discharge, or she has further concerns. I encourage her to follow up with her grocery sacker next one to 3 days. Patient agrees with plan and will be discharged home. Dictation of this chart was performed using voice recognition software; therefore, there may be some unintended grammatical errors. Discharge - Discharge Clinical Impression: Dysuria Condition: Good Disposition: HOME, SELF-CARE Additional Instructions: Please call your OB office and make a follow-up appointment for reevaluation in the next one to 3 days. Please take the antibiotics as prescribed. It is very important that you return to ER immediately if you have fevers, worsening pain in the lower abdomen, foul-smelling discharge from her vaginal area, or any redness or swelling in her vaginal area. These could all be signs or symptoms of a uterine her vaginal infection. The antibiotic, Cipro, we have placed you on can on rare occasions calls inflammation of her tendons sometimes lead to tendon rupture. This is very rare; however, he should avoid any strenuous activities such as jogging, running, or sports. Prescriptions: Ciprofloxacin HCl [Cipro 500 mg Tablet] 500 mg PO BID #14 tablet Doxycycline Hyclate 100 mg PO BID #14 capsule Referrals: LOS JOYNER MD [Primary Care Provider] - Follow up tomorrow
[2016-05-11] MEDS ORDERED: LIDOCAINE 1% INJ-PF (10 MG/ML) 30 ML SDV INFIL ONE (01:37)
[2016-05-11] MEDS ORDERED: CEFTRIAXONE INJ 1000 MG VIAL IM ONE (01:37)
[2016-05-11] MEDS ORDERED: CIPROFLOXACIN HCL 500 MG TABLET PO ONE (01:38)
[2016-05-11] MEDS ORDERED: DOXYCYCLINE HYCLATE 100 MG TABLET PO ONE (01:38)
[2016-05-11 03:32] VITALS: BP 127/86
== END 2016-05-11 03:30 | disposition home or self-care (01) ==
LOC: ER 18:55
DX: O90.89 Other complications of the puerperium, not elsewhere classified (principal); R30.0 Dysuria; R10.30 Lower abdominal pain, unspecified; Z98.890 Other specified postprocedural states
CPT/HCPCS: 99283; 96372; 87086; 87088; 81001; J3490 ×3; J0696

== ENCOUNTER 2017-05-06 16:28 | Outpatient (CLI) | payer OTHER ==
--- NOTE | 2017-05-06 18:00 | Non Stress Test Report ---
Non Stress Test Datetime Report Generated by CPN: 05/06/2017 18:00 DEMOGRAPHIC EGA NST: 37.6 INDICATION Indication for Study: Polyhydramnios MONITORING Monitor Explained: Monitor Explained; Test Explained; Patient Verbalized Understanding Time on Monitor: 05/06/2017 16:43 Time off Monitor: 05/06/2017 17:48 NST Duration: 65 NST INTERVENTIONS NST Interventions: PO Hydration; Reposition Patient Physician Notified NST: Dr Bucio BABY A: [id number] BABY A Movement : Present Contraction Frequency : 0 FHR Baseline : 135 Accelerations : 15X15 Decelerations : None Variability : Moderate 6-25bpm NST Review: Meets Criteria for Reactive NST NST Review and Verified By : Reymundo Bergman RNC NST Results: Reactive NST REPORT Report Trigger: Send Report
== END 2017-05-06 17:55 | disposition home or self-care (01) ==
LOC: LC 16:28
PROVIDERS: ATTEND Student in an Organized Health Care Education/Training Program
PROC: 4A1HXCZ Monitoring of Products of Conception, Cardiac Rate, External Approach (ICD-10-PCS; principal; 2017-05-06)
DX: O40.3XX0 Polyhydramnios, third trimester, not applicable or unspecified (principal); Z3A.37 37 weeks gestation of pregnancy
CPT/HCPCS: 59025

== ENCOUNTER 2017-05-26 03:21 | Inpatient (IN) | payer OTHER ==
[2017-05-26 04:07] LABS: APPEARANCE,URINE CLOUDY; BILIRUBIN,URINE NEGATIVE (NEGATIVE); COLOR,URINE YELLOW; GLUCOSE, URINE NEGATIVE (NEGATIVE); KETONES,URINE 20 mg/dL (NEGATIVE); LEUKOCYTE ESTERASE,URINE SMALL (NEGATIVE); NITRITE,URINE NEGATIVE (NEGATIVE); PROTEIN,URINE 30 mg/dL (NEGATIVE); UROBILINOGEN,URINE NEGATIVE mg/dL (<2.0)
[2017-05-26 04:08] LABS: AMNISURE (ROM) POSITIVE (NEGATIVE)
[2017-05-26 04:25] LABS: URINE AMPHETAMINES SCREEN NEGATIVE; URINE BARBITURATES SCREEN NEGATIVE; URINE BENZODIAZEPINES SCREEN NEGATIVE; URINE COCAINE SCREEN NEGATIVE; URINE MARIJUANA (THC) SCREEN NEGATIVE; URINE METHADONE SCREEN NEGATIVE; URINE PHENCYCLIDINE SCREEN NEGATIVE
[2017-05-26] MEDS ORDERED: RINGERS SOLUTION,LACTATED 300 ML IV ONE (04:27)
[2017-05-26 05:06] LABS: ABSOLUTE BASOPHILS # (AUTO) 0.1 10^3/uL (0.0-0.2); ABSOLUTE EOSINOPHILS # (AUTO) 0.2 10^3/uL (0.0-0.6); ABSOLUTE LYMPHOCYTES (AUTO) 1.7 10^3/uL (0.5-4.7); ABSOLUTE MONOCYTES (AUTO) 0.9 10^3/uL (0.1-1.4); ABSOLUTE NEUT (AUTO) 7.3 10^3/uL (1.7-8.2); BASOPHILS % (AUTO) 0.5 % (0-2); EOSINOPHILS % (AUTO) 2.1 % (0-6); HEMATOCRIT 31.9 % (36.0-47.0); HEMOGLOBIN 10.6 g/dL (12.0-15.5); LYMPHOCYTES % (AUTO) 16.9 % (13-45); MEAN CORPUSCULAR HGB CONC 33.3 g/dL (32.0-36.0); MEAN CORPUSCULAR VOLUME 78 fl (80-97); PLATELET COUNT 193 10^3/uL (150-450); RED BLOOD COUNT 4.09 10^6/uL (3.72-5.28); SEGMENTED NEUTROPHILS % (AUTO) 71.5 % (42-78); TOTAL CELLS COUNTED % (AUTO) 100 %; WHITE BLOOD COUNT 10.2 10^3/uL (4.0-10.5)
[2017-05-26] MEDS ORDERED: EPHEDRINE SULFATE INJ 50 MG/1 ML AMPULE ONE (05:56)
[2017-05-26] MEDS ORDERED: FENTANYL/BUPIVACAINE/NS/PF 200 MCG/100 ML RTUINJ EPI ONE (05:56)
[2017-05-26] MEDS ORDERED: PHENYLEPHRINE HCL INJ/PF 10 MG/1 ML SDV ONE (05:56)
[2017-05-26] MEDS ORDERED: FENTANYL CITRATE INJ/PF 100 MCG/2 ML AMPUL ONE (05:56)
[2017-05-26] MEDS ORDERED: BUPIVACAINE HCL 0.25 % INJ/PF (2.5 MG/1 ML) 30 ML VIAL ONE (05:57)
[2017-05-26] MEDS ORDERED: MISOPROSTOL 0.2 MG TABLET ONE (07:13)
[2017-05-26] MEDS ORDERED: LIDOCAINE 1% INJ-PF (10 MG/ML) 30 ML SDV ONE (07:13)
[2017-05-26] MEDS ORDERED: OXYTOCIN/NORMAL SALINE 20 UNIT/1,000 ML RTUINJ ONE (07:13)
[2017-05-26] MEDS ORDERED: OXYTOCIN/NORMAL SALINE 20 UNIT/1,000 ML RTUINJ IV PRN ×2 (07:34→08:43)
[2017-05-26] MEDS ORDERED: MISOPROSTOL 0.2 MG TABLET PR PRN (07:34)
[2017-05-26] MEDS ORDERED: LIDOCAINE 1% INJ-PF (10 MG/ML) 30 ML SDV INJ PRN (07:34)
[2017-05-26] MEDS ORDERED: FENTANYL/BUPIVACAINE/NS/PF 200 MCG/100 ML RTUINJ EPI PRN (07:37)
[2017-05-26] MEDS ORDERED: BUPIVACAINE HCL 0.25 % INJ/PF (2.5 MG/1 ML) 30 ML VIAL INFIL PRN (07:37)
[2017-05-26] MEDS: RINGERS SOLUTION,LACTATED 1,000 ML IV PRN ×2 (07:59→08:01)
[2017-05-26] MEDS ORDERED: ACETAMINOPHEN WITH CODEINE #3 TABLET PO PRN (08:43)
[2017-05-26] MEDS ORDERED: MEASLES,MUMPS&RUBELLA VACC/PF 0.5 ML VIAL SUBCUT PRN (08:43)
[2017-05-26] MEDS ORDERED: DIPH/PERTUSS(ACELL)/TETANUS VAC/PF 0.5 ML SYR (>=10YO) IM PRN (08:43)
[2017-05-26] MEDS ORDERED: PSEUDOEPHEDRINE HCL 30 MG TABLET PO PRN (08:43)
[2017-05-26] MEDS ORDERED: DIPHENHYDRAMINE HCL 25 MG CAPSULE PO PRN (08:43)
[2017-05-26] MEDS ORDERED: PROMETHAZINE HCL INJ 25 MG/1 ML VIAL IV PRN (08:43)
[2017-05-26] MEDS ORDERED: MAGNESIUM HYDROXIDE SUSP 30 ML UDCUP PO PRN (08:43)
[2017-05-26] MEDS ORDERED: NA PHOS,M-B/NA PHOS,DI-BA (ADULT) 133 ML ENEMA PR PRN (08:43)
[2017-05-26] MEDS ORDERED: DIBUCAINE 1% OINTMENT 28 GM TP PRN (08:43)
[2017-05-26] MEDS ORDERED: GLYCERIN/WITCH HAZEL LEAF 1 EACH MED..PAD TP PRN (08:43)
[2017-05-26] MEDS ORDERED: BENZOCAINE/MENTHOL AEROSOL SPRAY 56 ML TOP PRN (08:43)
[2017-05-26] MEDS ORDERED: ZOLPIDEM TARTRATE 5 MG TABLET PO PRN (08:43)
[2017-05-26] MEDS ORDERED: PROMETHAZINE HCL 25 MG TABLET PO PRN (08:43)
[2017-05-26] MEDS ORDERED: ACETAMINOPHEN 650 MG SUPP.RECT PR PRN (08:43)
[2017-05-26] MEDS ORDERED: PROMETHAZINE HCL 25 MG SUPP.RECT PR PRN (08:43)
[2017-05-26] MEDS ORDERED: IBUPROFEN 800 MG TABLET ONE (09:17)
[2017-05-26] MEDS ORDERED: ACETAMINOPHEN WITH CODEINE #3 TABLET ONE (10:01)
[2017-05-26] MEDS: ACETAMINOPHEN WITH CODEINE #3 TABLET PO PRN ×2 (10:02→19:16)
[2017-05-26] MEDS ORDERED: PRENATAL VITAMIN W DHA CAPSULE PO ONE (10:06)
[2017-05-26] MEDS ORDERED: FERROUS SULFATE 325 MG TABLET PO ONE (10:06)
[2017-05-26] MEDS ORDERED: DOCUSATE SODIUM 100 MG CAPSULE ONE (10:06)
[2017-05-26] MEDS: PRENATAL VITAMIN W DHA CAPSULE PO SCH (10:11)
[2017-05-26] MEDS: DOCUSATE SODIUM 100 MG CAPSULE PO SCH ×2 (10:11→17:00)
[2017-05-26] MEDS: FERROUS SULFATE 325 MG TABLET PO SCH ×2 (10:12→17:01)
[2017-05-26] MEDS: FAMOTIDINE 20 MG TABLET PO SCH ×2 (10:12→21:30)
[2017-05-26] MEDS: SENNOSIDES/DOCUSATE 8.6-50 MG 1 EACH TABLET PO SCH (10:12)
[2017-05-26] MEDS ORDERED: ONDANSETRON HCL INJ/PF 4 MG/2 ML SDV ONE (10:54)
[2017-05-26] MEDS ORDERED: LEVOTHYROXINE SODIUM 0.05 MG TABLET PO SCH (11:00)
--- NOTE | 2017-05-26 11:23 | Admission Physical ---
Datetime Report Generated by CPN: 05/26/2017 11:23 CURRENT ADMISSION Chief Complaint: Uterine Contractions; Suspected Ruptured Membranes ALLERGIES Medication Allergies: No Medication Allergies: No Known Allergies (05/26/2017) Medication Allergies: No Known Allergies (05/06/2017) Medication Allergies: No Known Allergies (05/03/2016) Latex: No Latex Allergies OBSTETRICAL HISTORY EDC: 05/21/2017 00:00 : 2 Para: 1 Term: 1 : 0 SAB: 0 IAB: 0 Ectopic: 0 Livin Cesareans: 0 VBACs: 0 Multiple Births: 0 Gestational Diabetes: No Rh Sensitization: No Incompetent Cervix: No HARRISON: No Infertility: No ART Treatment: No Uterine Anomaly: No IUGR: No Hx Previous C/S: No Macrosomia: No Hx Loss/Stillborn: No PIH: No Hx : No Placenta Previa/Abruption: No Depression/PP Depression: Yes PTL/PROM: No Post Hemorrhage: No Current Procedures: Ultrasound; NST Obstetrical History Comments: G1: 2016 40.6 8lbs 15oz G2: current, poly SEE RECORDS Alcohol: No Marijuana : No Cocaine: No Other Illicit Drugs: No Cigarettes: Never Smoker. [id number] MEDICAL HISTORY Diabetes: No Blood Transfusion: No Pulmonary Disease (Asthma, TB): No Breast Disease: No Hypertension: No Physical Education Specialist Surgery: No Heart Disease: No Hosp/Surgery: Yes Autoimmune Disorder: No Anesthetic Complications: No Kidney Disease: No Abnormal Pap Smear: No Neuro/Epilepsy: No Psychiatric Disorders: No Other Medical Diseases: No Hepatitis/Liver Disease: No Significant Family History: No Varicosities/Phlebitis: No Trauma/Violence : No Thyroid Dysfunction: Yes Medical History Comments: depression, tonsillectomy age 2, hypothyroid INFECTIOUS HISTORY Gonorrhea: No Genital Herpes: No Chlamydia: No Tuberculosis: No Syphilis: No Hepatitis: No HIV/AIDS Exposure: No Rash or Viral Illness: No HPV: Yes Infectious History Comments: 2017: LG 2016: ASCUS HPV+ PHYSICAL EXAM General: Normal HEENT: Normal Neurologic: Normal Thyroid: Normal Heart: Normal Lungs: Normal Back: Normal Abdomen: Normal Genitourinary Exam: Normal Extremities: Normal DTRs: Normal Pelvic Type: Adequate Vital Signs: Reviewed VAGINAL EXAM Dilatation: 8 Effacement: 80 Station: -2 Contraction Comments: 2-4 minutes MEMBRANES Membranes: Ruptured FETUS A EGA: 40.5 Monitoring: External US FHR- Baseline: 140's Variability: Moderate 6-25bpm Accelerations: 10X10 Decelerations: None Estimated Weight (gm): 3700 Presentation: Vertex PLANS FOR LABOR AND DELIVERY Labor and Delivery: None Pain Management: Epidural Feeding Preference: Formula Benefit of Breast Feed Discussed: Yes Circumcision: N/A INFORMED CONSENT Signature: Electronically signed by Michael Titus MD ([facility]) on 05/26/2017 at 07:02 with User ID: [email or web address] : I personally evaluated and examined the patient in conjunction with the MLP and agree with the assessment, treatment plan and disposition.
--- NOTE | 2017-05-26 11:38 | Delivery Summary ---
Del Sum A-C Datetime Report Generated by CPN: 05/26/2017 11:38 DELIVERY PERSONNEL DELIVERY PERSONNEL: [id number] Delivery Doctor:: Daxa Romero MD Labor and Delivery Nurse:: Astrid Reddy RNinspector insulation Nurse:: Tonie Mayorga RN Blue Leather Setter/PRODUCE WEIGHER: Gloria Arnaldo, EVENT SPECIALIST PRODUCT DEMONSTRATOR MATERNAL INFORMATION Delivery Anesthesia: Epidural Medications After Delivery: Pitocin Bolus-Please Comment; Other-Please Comment Meds After Delivery Comment: Pitocin 20 units in 1000mL NS Cytotec 1000mcg per rectum Estimated Blood Loss (ml): 200 Maternal Complications: None LABOR SUMMARY EDC: 05/21/2017 00:00 No. Babies in Womb: 1 Attempted: No Labor Anesthesia: Epidural LABOR INFORMATION Reason for Induction: Not Applicable Onset of Labor: 05/26/2017 03:45 Oxytocin: N/A Group B Beta Strep: negative Antibiotics # of Doses: 0 Steroids Given: None Reason Steroids Not Administered: Not Applicable MEMBRANES Membranes Rupture Method: Spontaneous Rupture of Membranes: 05/26/2017 02:00 Length of Rupture (hr): 6.47 Amniotic Fluid Color: Clear Amniotic Fluid Amount: Large Amniotic Fluid Odor: Normal STAGES OF LABOR Stage 3 hr: 0 Stage 3 min: 3 Total Time in Labor hr: 4 Total Time in Labor min: 46 VAGINAL DELIVERY Episiotomy: None Laceration #1: None Laceration Extension #1: N/A Laceration Repair: Not Applicable Sponge Count Correct: N/A Sharps Count Correct: N/A CSECTION DELIVERY Primary Indication: N/A Secondary Indication: N/A CSection Incidence: N/A Labor: N/A Elective: N/A CSection Incision: N/A BABY A INFORMATION Delivery Date/Time: 05/26/2017 08:28 Method of Delivery: Vaginal Born in Route : No : N/A Forceps: N/A Vacuum Extraction: N/A Shoulder Dystocia : No PRESENTATION/POSITION BABY A Presentation: Cephalic Cephalic Presentation: Vertex Vertex Position: Left Occipital Anterior Breech Presentation: N/A PLACENTA INFORMATION BABY A Placenta Delivery Time : 05/26/2017 08:31 Placenta Method of Delivery: Spontaneous Placenta Status: Delivered SCORES BABY A Heart Rate 1 min: >100 bpm Resp Effort 1 min: Good Cry Reflex Irritability 1 min: Cough or Sneeze or Pulls Away Muscle Tone 1 min: Active Motion Color 1 min: Body [place], Extremities Blue Resuscitation Effort 1 min: Tactile Stimulation SCORE 1 MIN: 9 Heart Rate 5 min: >100 bpm Resp Effort 5 min: Good Cry Reflex Irritability 5 min: Cough or Sneeze or Pulls Away Muscle Tone 5 min: Active Motion Color 5 min: Completely [place] Resuscitation Effort 5 min: Tactile Stimulation SCORE 5 MIN: 10 INFANT INFORMATION BABY A Gestational Age at Delivery: 40.5 Gestational Status: Full Term- 39- 40.6 Weeks Outcome : Liveborn Infant Condition : Stable Sex: Female IDENTIFICATION BABY A Verification Date/Time: 05/26/2017 08:53 ID Band Number: [id number] Mother's Name Verified: Yes Infant RN Verifying Infant: AHeavenly Reddy RN Additional Verifying Personnel: RHeavenly Mukesh RN WEIGHT/LENGTH BABY A Birthweight (gm): 3750 Weight (lb): 8 Weight (oz): 4 Length (in): 20.50 Length (cm): 52.07 CORD INFORMATION BABY A No. Cord Vessels: 3 Nuchal Cord : N/A Cord Blood Taken: Yes-For Storage (Mom's Blood type +) Suction: Mouth; Nose ASSESSMENT BABY A Physical Findings at Delivery: Within Normal Limits Respirations: Appears Normal Skin to Skin: Yes Skin to Skin Time (min): 60 Clinical Assistant Professor/ALS Called : No Infant Care By: Wale Mayorga RN Transferred To: Remains with Mother BABY B INFORMATION : N/A SIGNATURES Signature: with User ID: [email or web address] : I was personally available for consultation and serving as supervising physician for the MLP. : I personally evaluated and examined the patient in conjunction with the MLP and agree with the assessment, treatment plan and disposition.
--- NOTE | 2017-05-26 11:44 | Delivery Summary ---
Del Sum A-C Datetime Report Generated by CPN: 05/26/2017 11:44 DELIVERY PERSONNEL DELIVERY PERSONNEL: [id number] Delivery Doctor:: Daxa Romero MD Labor and Delivery Nurse:: Astrid Reddy RNdesk monitor Nurse:: Tonie Mayorga RN Professor Of Philosophy/DISTRIBUTION LEAD: Gloria Arnaldo, TURN OUT WORKER MATERNAL INFORMATION Delivery Anesthesia: Epidural Medications After Delivery: Pitocin Bolus-Please Comment; Other-Please Comment Meds After Delivery Comment: Pitocin 20 units in 1000mL NS Cytotec 1000mcg per rectum Estimated Blood Loss (ml): 200 Maternal Complications: None LABOR SUMMARY EDC: 05/21/2017 00:00 No. Babies in Womb: 1 Attempted: No Labor Anesthesia: Epidural LABOR INFORMATION Reason for Induction: Not Applicable Onset of Labor: 05/26/2017 03:45 Complete Dilatation: 05/26/2017 08:14 Oxytocin: N/A Group B Beta Strep: negative Antibiotics # of Doses: 0 Steroids Given: None Reason Steroids Not Administered: Not Applicable MEMBRANES Membranes Rupture Method: Spontaneous Rupture of Membranes: 05/26/2017 02:00 Length of Rupture (hr): 6.47 Amniotic Fluid Color: Clear Amniotic Fluid Amount: Large Amniotic Fluid Odor: Normal STAGES OF LABOR Stage 1 hr: 4 Stage 1 min: 29 Stage 2 hr: 0 Stage 2 min: 14 Stage 3 hr: 0 Stage 3 min: 3 Total Time in Labor hr: 4 Total Time in Labor min: 46 VAGINAL DELIVERY Episiotomy: None Laceration #1: None Laceration Extension #1: N/A Laceration Repair: Not Applicable Sponge Count Correct: N/A Sharps Count Correct: N/A CSECTION DELIVERY Primary Indication: N/A Secondary Indication: N/A CSection Urgency: N/A CSection Incidence: N/A Labor: N/A Elective: N/A CSection Incision: N/A BABY A INFORMATION Delivery Date/Time: 05/26/2017 08:28 Method of Delivery: Vaginal Born in Route : No : N/A Forceps: N/A Vacuum Extraction: N/A Shoulder Dystocia : No PRESENTATION/POSITION BABY A Presentation: Cephalic Cephalic Presentation: Vertex Vertex Position: Left Occipital Anterior Breech Presentation: N/A PLACENTA INFORMATION BABY A Placenta Delivery Time : 05/26/2017 08:31 Placenta Method of Delivery: Spontaneous Placenta Status: Delivered SCORES BABY A Heart Rate 1 min: >100 bpm Resp Effort 1 min: Good Cry Reflex Irritability 1 min: Cough or Sneeze or Pulls Away Muscle Tone 1 min: Active Motion Color 1 min: Body [place], Extremities Blue Resuscitation Effort 1 min: Tactile Stimulation SCORE 1 MIN: 9 Heart Rate 5 min: >100 bpm Resp Effort 5 min: Good Cry Reflex Irritability 5 min: Cough or Sneeze or Pulls Away Muscle Tone 5 min: Active Motion Color 5 min: Completely [place] Resuscitation Effort 5 min: Tactile Stimulation SCORE 5 MIN: 10 INFORMATION BABY A Gestational Age at Delivery: 40.5 Gestational Status: Full Term- 39- 40.6 Weeks Outcome : Liveborn Condition : Stable Sex: Female IDENTIFICATION BABY A Infant Verification Date/Time: 05/26/2017 08:53 ID Band Number: [id number] Mother's Name Verified: Yes RN Verifying : Coral Reddy RN Additional Verifying Personnel: Aruna Mayorga RN WEIGHT/LENGTH BABY A Infant Birthweight (gm): 3750 Infant Weight (lb): 8 Infant Weight (oz): 4 Infant Length (in): 20.50 Infant Length (cm): 52.07 CORD INFORMATION BABY A No. Cord Vessels: 3 Nuchal Cord : N/A Cord Blood Taken: Yes-For Storage (Mom's Blood type +) Infant Suction: Mouth; Nose ASSESSMENT BABY A Physical Findings at Delivery: Within Normal Limits Infant Respirations: Appears Normal Skin to Skin: Yes Skin to Skin Time (min): 60 Mechanical Technologist/ALS Called : No Care By: Wale Mayorga RN Transferred To: Remains with Mother BABY B INFORMATION : N/A SIGNATURES Signature: with User ID: [email or web address] : I was personally available for consultation and serving as supervising physician for the MLP. : I personally evaluated and examined the patient in conjunction with the MLP and agree with the assessment, treatment plan and disposition.
[2017-05-26] MEDS ORDERED: LEVOTHYROXINE SODIUM 0.1 MG TABLET PO ONE (14:00)
[2017-05-26] MEDS: IBUPROFEN 800 MG TABLET PO SCH ×2 (15:51→21:30)
[2017-05-27] MEDS: IBUPROFEN 800 MG TABLET PO SCH ×3 (05:24→22:24)
[2017-05-27] MEDS: LEVOTHYROXINE SODIUM 0.1 MG TABLET PO SCH (05:25)
[2017-05-27 07:37] LABS: HEMATOCRIT 25.1 % (36.0-47.0); HEMOGLOBIN 8.2 g/dL (12.0-15.5); MEAN CORPUSCULAR HEMOGLOBIN 26.1 pg (27.0-33.4); MEAN CORPUSCULAR HGB CONC 32.7 g/dL (32.0-36.0); MEAN CORPUSCULAR VOLUME 80 fl (80-97); PLATELET COUNT 138 10^3/uL (150-450); RED BLOOD COUNT 3.14 10^6/uL (3.72-5.28); RED CELL DISTRIBUTION WIDTH 16.1 % (11.5-14.0)
[2017-05-27] MEDS: ACETAMINOPHEN WITH CODEINE #3 TABLET PO PRN (08:53)
[2017-05-27] MEDS: FAMOTIDINE 20 MG TABLET PO SCH ×2 (09:10→22:24)
[2017-05-27] MEDS: PRENATAL VITAMIN W DHA CAPSULE PO SCH (09:10)
[2017-05-27] MEDS: DOCUSATE SODIUM 100 MG CAPSULE PO SCH ×2 (09:11→17:31)
[2017-05-27] MEDS: SENNOSIDES/DOCUSATE 8.6-50 MG 1 EACH TABLET PO SCH (09:11)
[2017-05-27] MEDS: FERROUS SULFATE 325 MG TABLET PO SCH ×2 (09:11→17:31)
--- NOTE | 2017-05-27 10:01 | PDOC PROGRESS REPORT ---
Subjective-OB Progress Note for:: 05/27/17 Subjective: 21yo G2 now P2 s/p ppd1. Voiding and ambulating without difficulty. Denies shortness of breath, dizziness, lightheadedness or other concerns. Physical Exam (OB) Vital Signs: Temp Pulse Resp BP Pulse Ox 98.3 F 62 15 105/63 99 05/26/17 19:18 05/27/17 07:25 05/27/17 07:25 05/27/17 07:25 05/27/17 07:25 Intake & Output 05/26/17 05/27/17 05/28/17 06:59 06:59 06:59 Intake Total 300 Balance 300 Weight 69.3 kg - General General Appearance: Appears well In distress: None - PIH/Pre-Eclampsia Headache: Absent Epigastric Pain: No Visual Changes: No - Episiotomy/Laceration Site Condition: N/A - Lochia Lochia Amount: Small 10-25 ml Lochia Color: Rubra/Red - Abdomen Description: Tender, Firm Hernia Present: No Fundal Description: Firm, Midline Fundal Height: u/u - u/2 - Respiratory Respiratory Status: No respiratory distress - Extremities Upper extremity: Normal inspection Lower extremities: Normal inspection - Neurological Cognition: Normal Orientation: AAOx4 - Psychological Associated symptoms: Normal affect, Normal mood Objective-Diagnostic Laboratory: 05/27/17 06:42 05/27/17 06:42 WBC 8.0 RBC 3.14 L Hgb 8.2 L D Hct 25.1 L MCV 80 MCH 26.1 L MCHC 32.7 RDW 16.1 H Plt Count 138 L Assessment and Plan(PN) - Assessment and Plan (1) Anemia complicating , third trimester Is this a current diagnosis for this admission?: Yes Plan: increase iron in diet and feso4 bid. (2) Vaginal delivery Is this a current diagnosis for this admission?: Yes Plan: routine pp care (3) Anemia due to acute blood loss Is this a current diagnosis for this admission?: Yes Plan: increase iron in diet and feso4 bid. Will repeat CBC in the AM prior to discharge - Time Spent with Patient Time with patient: Less than 15 minutes Medications reviewed and adjusted accordingly: Yes - Disposition Anticipated Discharge: Home Within: within 24 hours
[2017-05-28] MEDS: IBUPROFEN 800 MG TABLET PO SCH (05:10)
[2017-05-28 07:25] LABS: MEAN CORPUSCULAR HEMOGLOBIN 26.4 pg (27.0-33.4); MEAN CORPUSCULAR HGB CONC 33.3 g/dL (32.0-36.0); MEAN CORPUSCULAR VOLUME 80 fl (80-97); PLATELET COUNT 155 10^3/uL (150-450); RED BLOOD COUNT 3.02 10^6/uL (3.72-5.28); RED CELL DISTRIBUTION WIDTH 16.1 % (11.5-14.0); WHITE BLOOD COUNT 7.9 10^3/uL (4.0-10.5)
[2017-05-28] MEDS: LEVOTHYROXINE SODIUM 0.1 MG TABLET PO SCH (08:01)
[2017-05-28 08:09] VITALS: BP 105/64
[2017-05-28] MEDS: PRENATAL VITAMIN W DHA CAPSULE PO SCH (09:24)
[2017-05-28] MEDS: DOCUSATE SODIUM 100 MG CAPSULE PO SCH (09:24)
[2017-05-28] MEDS: FERROUS SULFATE 325 MG TABLET PO SCH (09:24)
[2017-05-28] MEDS: SENNOSIDES/DOCUSATE 8.6-50 MG 1 EACH TABLET PO SCH (09:24)
[2017-05-28] MEDS: FAMOTIDINE 20 MG TABLET PO SCH (09:37)
--- NOTE | 2017-05-28 09:52 | PDOC DISCHARGE SUMMARY ---
Final Diagnosis Discharge Date: 05/28/17 - Final Diagnosis (1) Anemia complicating , third trimester Is this a current diagnosis for this admission?: Yes (2) Anemia due to acute blood loss Is this a current diagnosis for this admission?: Yes (3) Vaginal delivery Is this a current diagnosis for this admission?: Yes Discharge Data - Discharge Medication Prescriptions: Acetaminophen with Codeine [Tylenol #3 Tablet] 1 each PO Q4HP PRN #20 tablet PRN Reason: Ibuprofen [Motrin 800 mg Tablet] 800 mg PO Q8 #90 tablet Levothyroxine Sodium [Synthroid] 2 tab PO DAILY #30 tablet Home Medications: 95/Iron Fum/Folic/Dha [ + Dha Combo Pack] 1 tab PO DAILY Acetaminophen with Codeine [Tylenol #3 Tablet] 1 each PO Q4HP PRN #20 tablet 09/09 Docusate Sodium [Colace 100 mg Capsule] 100 mg PO BID capsule 05/28/17 Ferrous Sulfate [Feosol 325 mg Tablet] 325 mg PO BID tablet 05/28/17 Ibuprofen [Motrin 800 mg Tablet] 800 mg PO Q8 #90 tablet 05/28/17 Levothyroxine Sodium [Synthroid] 2 tab PO DAILY #30 tablet 05/28/17 Reason(s) for Admission: Onset of Labor Procedures: NST Intrapartum Procedure(s): Spontaneous Vaginal Delivery - Diagnosis Test Laboratory: Temp Pulse Resp BP Pulse Ox 97.9 F 71 16 105/64 100 05/28/17 08:08 05/28/17 08:08 05/28/17 08:08 05/28/17 08:08 05/28/17 08:08 05/26/17 05/26/17 05/27/17 03:43 04:53 06:42 RBC 4.09 3.14 L Hgb 10.6 L 8.2 L D Hct 31.9 L 25.1 L Urine Opiates Screen NEGATIVE 05/28/17 06:58 RBC 3.02 L Hgb 8.0 L Hct 24.0 L Urine Opiates Screen - Discharge information/Instructions Discharge Activity: Balance Activity w/Rest, Pelvic Rest Discharge Diet: Regular Disposition: HOME, SELF-CARE Follow up with: [facility] in: 4, Weeks
== END 2017-05-28 11:40 | disposition home or self-care (01) | DRG 775 ==
LOC: LC 03:21 → LR 04:37 → 2S 11:19
PROVIDERS: ADMIT Obstetrics & Gynecology; ATTEND Obstetrics & Gynecology
PROC: 10E0XZZ Delivery of Products of Conception, External Approach (ICD-10-PCS; principal; 2017-05-26)
PROC: 4A1HXCZ Monitoring of Products of Conception, Cardiac Rate, External Approach (ICD-10-PCS; 2017-05-26)
DX: O99.284 Endocrine, nutritional and metabolic diseases complicating childbirth (principal); D62 Acute posthemorrhagic anemia; O99.02 Anemia complicating childbirth; E03.9 Hypothyroidism, unspecified; Z3A.40 40 weeks gestation of pregnancy; Z37.0 Single live birth; Z87.42 Personal history of other diseases of the female genital tract
CPT/HCPCS: 36415; 80307; 81005; 84112; 85025; 85027; 86592; 86850; 86900; 86901; J2370; J2405; J2590; J3010; J3490